=== PATIENT | female | born 1940 | race Caucasian/White ===

== ENCOUNTER 2020-09-14 13:18 | Outpatient (REF) | payer MEDICARE, SELFPAY ==
--- NOTE | 2020-09-14 13:21 | MR_ITS ---
EXAMINATION: MRI THORACIC SPINE WITHOUT AND WITH CONTRAST MRI LUMBAR SPINE WITHOUT AND WITH CONTRAST CLINICAL INFORMATION: Known spinal metastatic disease. Evaluate for cord compression. COMPARISON: CT scan of the chest 05/19/2020. TECHNIQUE: Multiplanar MR imaging of the thoracic and lumbar spine was performed without and with contrast. A total of 4.5 mL Gadavist was utilized for this examination. FINDINGS: Thoracic spine: There are a few heterogeneously enhancing masses visualized within the thoracic spine consistent with the patient's clinical history of spinal metastatic disease. There is a pathological compression fracture of the T5 vertebral body with impaction of the upper and lower endplates resulting in 60% vertebral height loss centrally and slight anterior wedging. Height loss appears appears overall unchanged when compared to recent prior CT imaging from 05/19/2020. Retropulsion of the posterior cortex of T5 is stable causing indentation of the thecal sac and subtle abutment on the ventral surface of the upper thoracic cord. No overt cord compression at this level. In addition to these findings there is multilevel degenerative spondylosis of the thoracic spine with shallow protrusions and/or bulging discs at multiple levels causing minimal indentation of the thecal sac. No canal or neuroforaminal compromise within the thoracic spine. No cord compression or abnormal intramedullary signal changes. Limited visualization of the intrathoracic anatomy reveals a few spiculated pulmonary masses within the left upper lobe. Lumbar spine: There are multiple heterogeneous enhancing masses involving the lumbar spine and sacrum consistent with spinal metastatic disease. The dominant lesion involves the majority of the L2 vertebral body and there is a pathological compression fracture of L2 with impaction of the lower endplate resulting in 80% vertebral height loss anteriorly. Subtle buckling of the posterior cortex without overt retropulsion. Vertebral heights are otherwise maintained within the lumbar spine. In addition to the spinal metastatic disease there is multilevel degenerative spondylosis of the lumbar spine with shallow protrusions and/or bulging discs causing indentation the ventral thecal sac at multiple levels. No canal compromise. The tip of the conus medullaris is located at the level of L1-L2. No mass effect on the conus. Bulging disc in conjunction with facet degenerative change causes varying degrees of mass effect on the traversing and foraminal segments of the nerve roots. For instance at L4-L5 there is moderate to severe compression of the right L4 foraminal nerve root. A bulging disc in conjunction with facet degenerative change at L2-L3 causes moderate compression of the left L2 foraminal nerve root. Limited visualization of the retroperitoneal anatomy reveals no additional worrisome finding. There are multiple well marginated benign-appearing cystic lesions within bilateral atrophic kidneys. Psoas and paraspinal muscle groups are symmetric. MR/MR thoracic spine wo/w con IMPRESSION: There is widespread osseous metastatic disease involving the thoracic and lumbar spine. There are pathological compression fractures at T5 and L2. No canal compromise within the thoracic or lumbar spine. No cord compression or abnormal intramedullary signal changes.
== END 2020-09-14 13:19 | disposition home or self-care (01) ==
LOC: HO.MRI 13:18
PROVIDERS: Visit Provider Internal Medicine Medical Oncology
DX: C34.91 Malignant neoplasm of unspecified part of right bronchus or lung (principal)
CPT/HCPCS: 72157; 72158; A9585

== ENCOUNTER 2020-09-18 13:50 | Outpatient (REF) | payer MEDICARE, SELFPAY ==
--- NOTE | 2020-09-18 13:55 | CT_ITS ---
EXAMINATION: CT CHEST WITH CONTRAST CLINICAL INFORMATION: Follow-up lung cancer COMPARISON: Previous chest CT scans most recent May 2020 TECHNIQUE: Multidetector volumetric CT imaging of the chest was obtained after the administration of 65 mL of Omnipaque 350 intravenous contrast without immediate adverse reactions. Axial MIP volume rendering provided. Sagittal and coronal reformatted images were obtained. This CT examination was performed using dose optimization techniques as appropriate, variously including the following: *Automated exposure control *Adjustment of mA and/or kV according to patient size (this includes techniques or standardized protocols for targeted exams where dose is matched to indication/reason for exam; i.e. extremities or head) *Use of iterative reconstruction technique DLP: 72 mGy-cm FINDINGS: LUNGS: There is evidence of emphysema. There is left apical pleural parenchymal scarring. The left apical peripheral or subpleural nodule associated pleural thickening measuring 1.5 cm axial image 39 series 4 does not appear appreciably changed. There is a peripheral or subpleural abnormal parenchymal density in the more lateral left lung apex and adjacent pleural thickening. This measures 1.4 cm axial image 32 series 4 and appears unchanged. There is a peripheral or subpleural abnormal parenchymal density in the anterior segment of the right upper lobe. This is partially calcified and measures 1 x 1.3 cm axial image 54 series 4. This appears unchanged. There is a 5 mm peripheral or subpleural right lower lobe nodule axial image 125 series 4 that is unchanged. There is a 5 mm peripheral or subpleural right lower lobe nodule axial image 124 series 4 that is stable. There is a new 4 mm peripheral or subpleural anterior segment left upper lobe nodule near the interhemispheric fissure axial image 126 series 4 that is new. There is a new abnormal parenchymal density seen in the lingula and clustered adjacent branching nodules. This probably represents bronchial wall soft tissue opacification/mucoid impaction and small infiltrate for example axial image 124 series 4. There are additional smaller bilateral 2 to 3 mm micronodules that appear unchanged. MEDIASTINUM: The visualized thyroid gland is normal. There are no enlarged hilar or mediastinal lymph nodes. The heart does not appear enlarged. There is coronary artery calcification. There is no pericardial effusion. The thoracic aorta is normal in caliber. PLEURA: There is a small right pleural effusion or pleural thickening axial image 47 series 3 that is new or increased. There is no left pleural effusion or pleural thickening. AXILLA: No lymphadenopathy. UPPER ABDOMEN: There are small bilateral renal cysts. OSSEOUS STRUCTURES: There are multiple sclerotic bone lesions. There is a large sclerotic lesion seen in the T5 vertebral body with mild to moderate compression fracture and some retropulsion of bone into the spinal canal. This does not appear appreciably changed. There is a sclerotic lesion in the T6 vertebral body that is unchanged. There is a smaller sclerotic lesion in the posterior T4 vertebral body that is unchanged. There are sclerotic lesions in the L1 and L2 vertebral bodies. There is degenerative disc disease at this level. How much of this represents sclerotic metastatic disease versus discogenic sclerosis is uncertain. There is a sclerotic lesion in the right anterior fourth rib. This does not appear appreciably changed. There are small lytic lesions in both humeral heads. This may represent subchondral cystic change related to arthritis. CT/CT chest w con IMPRESSION: Emphysema. New 4 mm anterior left upper lobe nodule in the interhemispheric fissure. New probable bronchial soft tissue opacification or mucoid impaction/airways disease and small infiltrate in the inferior segment of the lingula. Otherwise pulmonary nodules and parenchymal densities are not appreciably changed. New small right pleural effusion or pleural thickening. Stable sclerotic bone lesions and pathologic T5 vertebral body compression fracture. Coronary artery calcification.
[2020-09-18] MEDS: iohexoL 350 MG/ML 100 ML INFUS..BTL 65 ML IV (15:31)
== END 2020-09-18 13:51 | disposition home or self-care (01) ==
LOC: HO.CT 13:50
PROVIDERS: Visit Provider Internal Medicine Medical Oncology
DX: C34.91 Malignant neoplasm of unspecified part of right bronchus or lung (principal)
CPT/HCPCS: 71260; Q9967

== ENCOUNTER 2021-04-08 15:33 | Outpatient (REF) | payer MEDICARE, SELFPAY ==
--- NOTE | ~2021-04-08 | CT_ITS ---
EXAMINATION: CT CHEST WITH CONTRAST CLINICAL INFORMATION: Adenocarcinoma of the lung COMPARISON: Previous chest CT September 2020 TECHNIQUE: Multidetector volumetric CT imaging of the chest was obtained after the administration of 65 mL of Omnipaque 350 intravenous contrast without immediate adverse reactions. Axial MIP volume rendering provided. Sagittal and coronal reformatted images were obtained. This CT examination was performed using dose optimization techniques as appropriate, variously including the following: *Automated exposure control *Adjustment of mA and/or kV according to patient size (this includes techniques or standardized protocols for targeted exams where dose is matched to indication/reason for exam; i.e. extremities or head) *Use of iterative reconstruction technique DLP: 72 mGy-cm FINDINGS: PROPAGATION MANAGER: LUNGS: There is evidence of emphysema. The peripheral or subpleural left upper lobe nodule measuring 1.3 cm axial image 28 series 7 that does not appear appreciably changed. The spiculated 1.4 cm left upper lobe nodule axial image 38 series 7 does not appear appreciably changed. There is a 6 mm peripheral or subpleural right lower lobe nodule axial image 84 series 7 that does not appear changed. There is a 6 mm peripheral or subpleural right lower lobe nodule axial image 116 series 7 that does not appear changed. There are clustered peribronchial lingular nodules, largest measuring 1.3 and 1.5 cm axial image 156 series 7. These do not appear appreciably changed. There is volume loss to the left upper lobe. MEDIASTINUM: There is coronary artery calcification. There is a small amount of fluid in the superior pericardial recess. This is stable. The thoracic aorta is upper normal in size and tortuous. There are small mediastinal and hilar lymph nodes that are stable. No enlarged lymph nodes are seen. PLEURA: There is a trace right pleural effusion or pleural thickening. AXILLA: No lymphadenopathy. UPPER ABDOMEN: There are small bilateral renal cysts. OSSEOUS STRUCTURES: There multiple sclerotic bone lesions in the thoracic and lumbar spine and right fourth rib. There is a pathologic compression fracture of the T5 vertebral body and retropulsion of bone into the spinal canal that on the right. This does not appear appreciably changed. There is increasing sclerosis of the T6 vertebral body. There are sclerotic lesions in the L1, L2 and L3 vertebral bodies. There is a pathologic compression fracture of the L2 vertebral body. There may be mild retropulsion of bone into the spinal canal on the right. This does not appear appreciably changed. CT/CT chest w con IMPRESSION: Emphysema. Stable left upper and lingular nodules and small right lower lobe nodules. Sclerotic metastatic disease to the bone with pathologic compression fractures of the T5 and L2 vertebral bodies. This does not appear appreciably changed from previous MRIs September 2020. There is interval increase in sclerotic T6 vertebral body lesion.
[2021-04-08] MEDS: iohexoL 350 MG/ML 100 ML INFUS..BTL IV (16:16)
== END 2021-04-08 15:34 | disposition home or self-care (01) ==
LOC: HO.CT 15:33
PROVIDERS: Visit Provider Internal Medicine Medical Oncology
DX: C34.91 Malignant neoplasm of unspecified part of right bronchus or lung (principal)
CPT/HCPCS: 71260; Q9967

== ENCOUNTER 2021-09-20 12:10 | Emergency (ER) | payer MEDICARE, SELFPAY ==
--- NOTE | ~2021-09-20 | MR_ITS ---
EXAMINATION: MR THORACIC SPINE WITHOUT CONTRAST, LIMITED MR LUMBAR SPINE WITHOUT CONTRAST, LIMITED CLINICAL INFORMATION: Known spinal metastatic disease. Pain. Lower extremity weakness and falls. COMPARISON: MRI dated 09/14/2020. TECHNIQUE: Multiplanar, multisequential imaging acquired. Limited study due to patient discomfort and inability to continue the examination for postcontrast imaging. FINDINGS: THORACIC SPINE: Extensive osseous metastatic disease again evident with progression compared to the prior MRI study. Marrow signal replacement now evident at the T4 and more so at the T6 levels compared to the prior examination. A pathologic severe compression fracture deformity at the T5 level has worsened, now resulting in further bony retropulsion and moderate thecal sac distortion with further ventral cord flattening, but no visible intramedullary signal change. Severe right T5-T6 neural foraminal narrowing is worsened as well. On the localizer acquisition, metastatic disease in the C2 vertebra is again visible, though not targeted for evaluation. No cord signal abnormality or syrinx is seen. There is mild epidural soft tissue disease at the T4 through T6 levels contributing to thecal sac distortion. The ventral thecal sac at the T6 level now has a trefoil appearance due to epidural soft tissue disease without cord compression. No additional compression fractures identified. Multilevel spondylosis again evident with facet arthropathy and mild disc bulges. The marrow signal is heterogeneous due to fatty changes. Metastatic disease infiltrates the T12 vertebral body posteriorly, also progressed since the prior examination. There is a leftward curvature of the thoracic spine. Indeterminate nodular soft tissue disease is visible in the left lung apex medially and posteriorly, also visible on prior chest CT imaging. The visualized mediastinum is grossly unremarkable, though not well assessed by MRI. Renal cysts noted. LUMBAR SPINE: There is a rightward curvature of the upper lumbar spine. Diffusely heterogeneous marrow signal again evident. Osseous metastatic disease has progressed in the L1, L2, L3, and L4 vertebrae, most severely affecting the L2 vertebral body, as on the prior study. There is a chronic pathologic fracture of the T2 vertebral body with anterior wedging deformity. Epidural soft tissue disease distorting the ventral thecal sac from the L1 through the L2 levels has worsened superimposed upon spondylosis. No high-grade central canal stenosis evident. Significant foraminal narrowing noted at the L2-L3 level, worse on the left side. Further marrow signal replacement noted at the L3 level without a compression deformity. Exuberant facet arthropathy visible at the L3-L4, L4-L5, and L5-S1 levels with severe left foraminal narrowing at L3-L4 and right foraminal narrowing at the L4-L5 level, as on the prior examination. Osseous disease is again visible within the lower sacrum. The lower cord, conus tip, and cauda equina nerve roots are normal. The paraspinal soft tissues are unremarkable. MR/MR thoracic spine wo con IMPRESSION: 1. Progressed osseous metastatic disease in the thoracolumbar spine. Severe compression fracture deformity again evident at the T5 level, though worsened on the current examination with further bony retropulsion and ventral epidural soft tissue disease resulting in moderate thecal sac distortion and [id number] ventral cord flattening without intramedullary signal change. 2. Increased ventral epidural soft tissue disease from the T4 through the T6 levels with [id number] thecal sac distortion at the upper T6 level. 3. Progressed osseous metastatic disease and epidural soft tissue disease as well in the lumbar spine with disease most significant at the L2 level, as noted on prior imaging. No new compression fractures. Epidural soft tissue disease at the L1 and L2 levels contributing to mild ventral thecal sac distortion superimposed upon moderate spondylosis.
--- NOTE | ~2021-09-20 | MR_ITS ---
EXAMINATION: MR THORACIC SPINE WITHOUT CONTRAST, LIMITED MR LUMBAR SPINE WITHOUT CONTRAST, LIMITED CLINICAL INFORMATION: Known spinal metastatic disease. Pain. Lower extremity weakness and falls. COMPARISON: MRI dated 09/14/2020. TECHNIQUE: Multiplanar, multisequential imaging acquired. Limited study due to patient discomfort and inability to continue the examination for postcontrast imaging. FINDINGS: THORACIC SPINE: Extensive osseous metastatic disease again evident with progression compared to the prior MRI study. Marrow signal replacement now evident at the T4 and more so at the T6 levels compared to the prior examination. A pathologic severe compression fracture deformity at the T5 level has worsened, now resulting in further bony retropulsion and moderate thecal sac distortion with further ventral cord flattening, but no visible intramedullary signal change. Severe right T5-T6 neural foraminal narrowing is worsened as well. On the localizer acquisition, metastatic disease in the C2 vertebra is again visible, though not targeted for evaluation. No cord signal abnormality or syrinx is seen. There is mild epidural soft tissue disease at the T4 through T6 levels contributing to thecal sac distortion. The ventral thecal sac at the T6 level now has a trefoil appearance due to epidural soft tissue disease without cord compression. No additional compression fractures identified. Multilevel spondylosis again evident with facet arthropathy and mild disc bulges. The marrow signal is heterogeneous due to fatty changes. Metastatic disease infiltrates the T12 vertebral body posteriorly, also progressed since the prior examination. There is a leftward curvature of the thoracic spine. Indeterminate nodular soft tissue disease is visible in the left lung apex medially and posteriorly, also visible on prior chest CT imaging. The visualized mediastinum is grossly unremarkable, though not well assessed by MRI. Renal cysts noted. LUMBAR SPINE: There is a rightward curvature of the upper lumbar spine. Diffusely heterogeneous marrow signal again evident. Osseous metastatic disease has progressed in the L1, L2, L3, and L4 vertebrae, most severely affecting the L2 vertebral body, as on the prior study. There is a chronic pathologic fracture of the T2 vertebral body with anterior wedging deformity. Epidural soft tissue disease distorting the ventral thecal sac from the L1 through the L2 levels has worsened superimposed upon spondylosis. No high-grade central canal stenosis evident. Significant foraminal narrowing noted at the L2-L3 level, worse on the left side. Further marrow signal replacement noted at the L3 level without a compression deformity. Exuberant facet arthropathy visible at the L3-L4, L4-L5, and L5-S1 levels with severe left foraminal narrowing at L3-L4 and right foraminal narrowing at the L4-L5 level, as on the prior examination. Osseous disease is again visible within the lower sacrum. The lower cord, conus tip, and cauda equina nerve roots are normal. The paraspinal soft tissues are unremarkable. MR/MR lumbar spine wo con IMPRESSION: 1. Progressed osseous metastatic disease in the thoracolumbar spine. Severe compression fracture deformity again evident at the T5 level, though worsened on the current examination with further bony retropulsion and ventral epidural soft tissue disease resulting in moderate thecal sac distortion and [id number] ventral cord flattening without intramedullary signal change. 2. Increased ventral epidural soft tissue disease from the T4 through the T6 levels with [id number]-[id number] thecal sac distortion at the upper T6 level. 3. Progressed osseous metastatic disease and epidural soft tissue disease as well in the lumbar spine with disease most significant at the L2 level, as noted on prior imaging. No new compression fractures. Epidural soft tissue disease at the L1 and L2 levels contributing to mild ventral thecal sac distortion superimposed upon moderate spondylosis.
[2021-09-20 12:25] VITALS: BP 128/80; BP 138/86; PULSE 79; PULSE 86; RESP 18; TEMP 36.8; O2SAT 94; O2SAT 96; BMI 14.1
--- NOTE | 2021-09-20 15:46 | ED.GENADULT ---
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 Denies head trauma or LOC during any of these falls. Patient was instructed to come to ED from oncologist Dr. Haas. Reports difficulty ambulating secondary to weakness/pain. denies fever, numbness/ tingling, urinary incontinence / retention, head trauma, LOC <BERTRAND Lamb - Last Filed: 09/20/21 17:20> Onset (ago): week(s) <BERTRAND Lamb - Last Filed: 09/20/21 17:20> Related Data Home medications: Home Medications Medication Instructions Recorded Confirmed aspirin 81 mg tablet 81 mg PO DAILY 06/23/20 09/17/21 Previous Rx's Medication Instructions Recorded calcium citrate 315 mg-vitamin D3 1 tab PO TID #90 tab 06/22/21 5 mcg (200 unit) tablet (Calcium Citrate + D) oxycodone 5 mg capsule 5 mg PO Q8H PRN #30 cap 09/17/21 vitamin B12 1,000 mcg-folic acid 1 jake SUBLINGUAL DAILY #90 ea 09/17/21 400 mcg sublingual lozenge dexamethasone 4 mg tablet 10 mg PO DAILY 5 Days #13 tab 09/20/21 (Decadron) oxycodone 5 mg tablet 5 mg PO Q8H PRN #10 tab 09/20/21 <BERTRAND Lamb Last Filed: 09/20/21 17:20> Allergies/adverse reactions: Allergies Allergy/AdvReac Type Severity Reaction Status Date / Time lactose [LACTOSE] AdvReac Mild DIARRHEA,BL Verified 06/23/20 13:31 OATING <BERTRAND Lamb - Last Filed: 09/20/21 17:20> Review of Systems Review of Systems: Constitutional: No Fever, No Chills, No Fatigue, No Malaise ENT/Mouth: No Hearing loss, No Ear Pain, No Nasal Congestion, No sore throat, No Rhinorrhea Eyes: No Eye Pain, No Swelling, No Redness, No Discharge Cardiovascular: No Chest Pain, No SOB, No Edema, No Palpitations Respiratory: No Cough, No Dyspnea Gastrointestinal: No Nausea, No Vomiting, No Diarrhea, No Constipation, No Abdominal pain Genitourinary: No irregular bleeding, No Dysuria, No Hematuria, No Urinary Incontinence/retention, No Urgency, No Flank Pain Musculoskeletal: + back pain, No Myalgias, No Joint Swelling Skin: No Skin Lesions, No rash Neuro: No Weakness, No Numbness, No Paresthesias, No Dizziness, No Headache <BERTRAND Lamb Last Filed: 09/20/21 17:20> Yes all other systems are reviewed and are negative <BERTRAND Lamb - Last Filed: 09/20/21 17:20> Neurologic: Denies Sensory deficit (Neuro) <BERTRAND Lamb Last Filed: 09/20/21 17:20> [facility] Past Medical History Attestation statement: The following information was validated with the patient. <BERTRAND Lamb - Last Filed: 09/20/21 17:20> Medical History: Medical History Cataract HTN (hypertension) <BERTRAND Lamb Last Filed: 09/20/21 17:20> Social History Social History: Social History Alcohol intake: current Alcohol intake frequency: holidays/special occasions only Cigarette Packs Per Day: 1 Advance Directives: No Advance Directives Information Provided: Yes <BERTRAND Lamb Last Filed: 09/20/21 17:20> Physical Exam Vital Signs: Vital Signs: Last Vital Signs Temp 98.2 F 01/17/22 12:25 Pulse 80 09/20/21 20:35 Resp 16 09/20/21 20:35 BP 141/74 H 09/20/21 20:35 Pulse Ox 98 09/20/21 20:35 BMI result Body Mass Index 14.1 <BERTRAND Lamb - Last Filed: 09/20/21 17:20> Vital Signs: Last Vital Signs Temp 98.2 F 09/20/21 12:25 Pulse 80 09/20/21 20:35 Resp 16 09/20/21 20:35 BP 141/74 H 09/20/21 20:35 Pulse Ox 98 09/20/21 20:35 BMI result Body Mass Index 14.1 <Mehnaz Farnsworth NP - Last Filed: 09/20/21 22:04> Const: General: cooperative, healthy appearing and no acute distress <BERTRAND Lamb - Last Filed: 09/20/21 17:20> Orientation/consciousness: patient oriented x3 <BERTRAND Lamb - Last Filed: 09/20/21 17:20> Limitations: no limitations <BERTRAND Lamb - Last Filed: 09/20/21 17:20> HENMT: Head: Yes normal to inspection <BERTRAND Lamb - Last Filed: 09/20/21 17:20> Ears: hearing grossly normal bilaterally <BERTRAND Lamb - Last Filed: 09/20/21 17:20> General nose exam: Normal external nose present <BERTRAND Lamb - Last Filed: 09/20/21 17:20> Face and sinus: Yes normal facial exam <BERTRAND Lamb - Last Filed: 09/20/21 17:20> Eyes: General: appearance normal, both eyes and all related structures <BERTRAND Lamb - Last Filed: 09/20/21 17:20> EOM: EOMs intact bilaterally <BERTRAND Lamb - Last Filed: 09/20/21 17:20> Neck: Other: no midline cervical spinous tenderness <BERTRAND Lamb - Last Filed: 09/20/21 17:20> Neck: Yes normal visual inspection and Yes no meningeal signs <Melissa Sauceda PA - Last Filed: 09/20/21 17:20> Resp: Effort & Inspection: normal respiratory effort and no respiratory distress <Melissa Sauceda PA - Last Filed: 09/20/21 17:20> Auscultation: clear to auscultation bilaterally <Melissa Sauceda PA - Last Filed: 09/20/21 17:20> Cardio: Rate: regular rate <Melissa Poulsvetlana PA - Last Filed: 09/20/21 17:20> Heart sounds: S1 normal heart sound present and S2 normal heart sound present <Melissa Poullebront PA - Last Filed: 09/20/21 17:20> Peripheral pulses: dorsalis pedis present <Melissa Poulsvetlana PA - Last Filed: 09/20/21 17:20> GI: Inspection: Yes normal to inspection <Melissa Sauceda PA - Last Filed: 09/20/21 17:20> Palpation (GI): Soft to palpation, nontender, no guarding and not rigid <Melissa Sauceda PA - Last Filed: 09/20/21 17:20> : General: Yes no CVA tenderness <Melissa Sauceda, PA - Last Filed: 09/20/21 17:20> Back/Spine/Pelvis: Other: no midline thoracic/ lumbar spinous tenderness/step-off or deformity <Melissa Sauceda, PA - Last Filed: 09/20/21 17:20> Back: no CVA tenderness <Melissa Sauceda PA - Last Filed: 09/20/21 17:20> Skin: Rashes: no rashes <Melissa Poullebront PA - Last Filed: 09/20/21 17:20> Wounds: no wounds <Melissa Sauceda PA - Last Filed: 09/20/21 17:20> Neuro: Other: no saddle anesthesia <Melissa Poullebront, PA - Last Filed: 09/20/21 17:20> General: patient oriented x3, gait normal, tone normal, moves all extremities and no meningeal signs <Melissa Sauceda PA - Last Filed: 09/20/21 17:20> Gait exam (Neuro): Normal gait present <BERTRAND Lamb - Last Filed: 09/20/21 17:20> Motor exam (neuro): 5/5 motor strength present throughout <BERTRAND Lamb - Last Filed: 09/20/21 17:20> Sensory Exam: No Sensory deficit (Neuro) <BERTRAND Lamb - Last Filed: 09/20/21 17:20> Extrem: General: Yes normal to inspection <BERTRAND Lamb - Last Filed: 09/20/21 17:20> Course Course Course Narrative: -1700--no leukocytosis, H/H low at baseline, chronic CKD, labs otherwise unremarkable -1713--patient transported to MRI > unable to stay still, PO Ativan and IV Morphne ordered and brought to MRI -1900-- ED care transferred to UNLOADER OPERATOR Mehnaz pending MRI results and dispo <BERTRAND Lamb - Last Filed: 09/20/21 17:20> -1700--no leukocytosis, H/H low at baseline, chronic CKD, labs otherwise unremarkable -1712--patient transported to MRI > unable to stay still, PO Ativan and IV Morphne ordered and brought to MRI -1900-- ED care transferred to UNLOADER OPERATOR Mehnaz pending MRI results and dispo 2029-This is a 80 yo female with a history of adenocarcinoma with bony mets s/p radiation (completed 10/16/20) s/p chemotherapy stopped 04/16/2020 seen at oncology 09/17 for follow-up. C/o lower leg weakness, multiple falls at home. Referred to ED for MRI spine d/t concern for cord compression with known history of metastatic disease to spine. Patient was seen by my colleague Melissa THURSTON and was noted to have a normal neurological exam with intact reflexes and no reports of saddle anesthesia or incontinence. MRI was ordered and patient was signed out to me pending the MRI. MRI spine shows extensive metastatic disease with progression compared to previous MRI study. A pathological severe compression fracture seen at T5 is worsened now resulting in bony retropulsion and moderate thecal sac distortion with further ventral cord flattening. No visible intramedullary signal change. Additional metastatic disease seen at T4, T6, C2, multiple lumbar. I discussed the case with Dr. Haas who with the patient's oncologist. If patient is willing she recommended treatment with radiation of the spine and 4 mg of Decadron every 6 hours IV. I spoke to both the patient and the . Initially the patient wanted to go home and follow-up with Oncology but after further discussion there was concern from family that she may be unsafe to go home due to her weakness and falls. She did not want placement in a short-term rehab. Unfortunately we do not offer radiation treatment here at [facility] and I will attempt to call local hospitals to see if they can offer this service for the patient. 2099-spoke to [facility] but they are closed to transfers 2109-spoke to [facility] but they are closed to transfers 2114-spoke to [facility]. Tonight they are closed to transfers but they may have a bed in the morning for the patient. They recommended calling back in the morning. Patient is not willing to go elsewhere and I did offer to call [facility], hospitals in [place] and [facility] but both the patient and her Chaim declined this. 2129-I spoke to our medicine team here at [facility] to see if they would be willing to admit the patient overnight, continue IV steroids and attempt transfer in the morning but they declined this. Therefore after further discussion with both family and patient we will hold patient in the ER overnight and attempt transfer in the morning. 2199- I received a phone call from the Chaim who tells me he will come pick the patient up from the ER tonight. He was able to get a hold of his son who will help him merchandise pickup/receiving associate the [facility] I explained they need to call Dr Haas's office in the morning to discuss next steps. I explained to the patient who is alert and oriented x3 side effects of high dose steroids at home as well as risks of delaying care which include progression of disease and/or paralysis. 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 On exam vital signs stable, NAD, nontoxic no midline spinous tenderness throughout, no red flag symptoms, no saddle anesthesia. Strength intact. Concern for bone Mets vs MSK pain/strain. Lower concern or cauda equina, epidural abscess, or demyelinating process Plan: Case discussed with Dr. Haas recommended MR thoracic and lumbar spine, Labs, UA <BERTRAND Lamb - Last Filed: 09/20/21 17:20> Medical Records Medical records reviewed: Yes I reviewed the patient's medical records. <BERTRAND Lamb - Last Filed: 09/20/21 17:20> Lab Data Lab results reviewed: Yes I reviewed the patient's lab results. <BERTRAND Lamb - Last Filed: 09/20/21 17:20> Result diagrams: : 09/20/21 16:27 09/20/21 16:27 <BERTRAND Lamb - Last Filed: 09/20/21 17:20> Labs: Lab Results 09/20/21 09/20/21 Range/Units 16:27 16:27 WBC 6.5 (4.8-10.8) X10*3/uL RBC 2.34 L (4.20-5.50) X10*6/uL Hgb 8.0 L (12.0-16.0) g/dl Hct 24.6 L (37.0-47.0) % MCV 105.1 H (80.0-98.0) fL MCH 34.2 H (27.0-33.0) pg MCHC 32.5 (31.0-35.0) g/dl RDW 14.8 (11.0-16.0) % Plt Count 116 L (160-400) X10*3/uL MPV 9.0 L (9.4-12.3) fL Immature Gran % (Auto) 0.8 H (0.0-0.4) % Neut % (Auto) 84.0 H (45-73) % Lymph % (Auto) 7.3 L (20-40) % Nicholas % (Auto) 7.1 (2-11) % Eos % (Auto) 0.6 (0-4) % Baso % (Auto) 0.2 (0-2) % Lymph # (Auto) 0.5 L (1.2-4.9) X10*3/uL Nicholas # (Auto) 0.5 (0.1-1.2) X10*3/uL Eos # (Auto) 0.0 (0.0-0.4) X10*3/uL Baso # (Auto) 0.0 (0.0-0.2) X10*3/uL Abs Immat Gran (auto) 0.05 H (0.00-0.03) X10*3/uL Absolute Neuts (auto) 5.5 (2.0-8.3) x10*3/uL Absolute Nucleated RBC 0.000 (0.0-0.012) X10*3/uL Nucleated RBC % (auto) 0.0 (0.0-0.2) /100WBC Sodium 140 (135-145) mmol/L Potassium 4.3 (3.3-5.1) mmol/L Chloride 109 H (96-108) mmol/L Carbon Dioxide 23 (22-29) mmol/L Anion Gap 12 (12-20) BUN 41 H (9-16) mg/dL Creatinine 1.80 H (0.5-1.4) mg/dL Estim Creat Clear Calc 16.6 Estimated GFR 27 Random Glucose 93 (60-115) mg/dL Calcium 8.5 D (8.4-10.2) mg/dL Magnesium 2.3 (1.6-2.6) mg/dL Total Bilirubin 0.4 (0.0-1.0) mg/dL Direct Bilirubin 0.2 (0.0-0.5) mg/dL AST 14 (5-31) U/L ALT 11 (0-31) U/L Alkaline Phosphatase 148 H D (39-117) U/L Total Protein 5.9 L (6.5-8.0) g/dL Albumin 3.3 L (3.5-5.0) g/dL <BERTRAND Lamb - Last Filed: 09/20/21 17:20> Lab Results 09/20/21 09/20/21 Range/Units 16:27 16:27 WBC 6.5 (4.8-10.8) X10*3/uL RBC 2.34 L (4.20-5.50) X10*6/uL Hgb 8.0 L (12.0-16.0) g/dl Hct 24.6 L (37.0-47.0) % MCV 105.1 H (80.0-98.0) fL MCH 34.2 H (27.0-33.0) pg MCHC 32.5 (31.0-35.0) g/dl RDW 14.8 (11.0-16.0) % Plt Count 116 L (160-400) X10*3/uL MPV 9.0 L (9.4-12.3) fL Immature Gran % (Auto) 0.8 H (0.0-0.4) % Neut % (Auto) 84.0 H (45-73) % Lymph % (Auto) 7.3 L (20-40) % Nicholas % (Auto) 7.1 (2-11) % Eos % (Auto) 0.6 (0-4) % Baso % (Auto) 0.2 (0-2) % Lymph # (Auto) 0.5 L (1.2-4.9) X10*3/uL Nicholas # (Auto) 0.5 (0.1-1.2) X10*3/uL Eos # (Auto) 0.0 (0.0-0.4) X10*3/uL Baso # (Auto) 0.0 (0.0-0.2) X10*3/uL Abs Immat Gran (auto) 0.05 H (0.00-0.03) X10*3/uL Absolute Neuts (auto) 5.5 (2.0-8.3) x10*3/uL Absolute Nucleated RBC 0.000 (0.0-0.012) X10*3/uL Nucleated RBC % (auto) 0.0 (0.0-0.2) /100WBC Sodium 140 (135-145) mmol/L Potassium 4.3 (3.3-5.1) mmol/L Chloride 109 H (96-108) mmol/L Carbon Dioxide 23 (22-29) mmol/L Anion Gap 12 (12-20) BUN 41 H (9-16) mg/dL Creatinine 1.80 H (0.5-1.4) mg/dL Estim Creat Clear Calc 16.6 Estimated GFR 27 Random Glucose 93 (60-115) mg/dL Calcium 8.5 D (8.4-10.2) mg/dL Magnesium 2.3 (1.6-2.6) mg/dL Total Bilirubin 0.4 (0.0-1.0) mg/dL Direct Bilirubin 0.2 (0.0-0.5) mg/dL AST 14 (5-31) U/L ALT 11 (0-31) U/L Alkaline Phosphatase 148 H D (39-117) U/L Total Protein 5.9 L (6.5-8.0) g/dL Albumin 3.3 L (3.5-5.0) g/dL <Mehnaz Farnsworth NP - Last Filed: 09/20/21 22:04> Imaging Data mri lumbar/thoracic: Attestation: I personally reviewed and interpreted this imaging study as follows: <Mehnaz Farnsworth NP - Last Filed: 09/20/21 22:04> Radiologist's impression: IMPRESSION: 1. Progressed osseous metastatic disease in the thoracolumbar spine. Severe compression fracture deformity again evident at the T5 level, though worsened on the current examination with further bony retropulsion and ventral epidural soft tissue disease resulting in moderate thecal sac distortion and [id number] ventral cord flattening without intramedullary signal change. ? 2. Increased ventral epidural soft tissue disease from the T4 through the T6 levels with [id number] thecal sac distortion at the upper T6 level. ? 3. Progressed osseous metastatic disease and epidural soft tissue disease as well in the lumbar spine with disease most significant at the L2 level, as noted on prior imaging. No new compression fractures. Epidural soft tissue disease at the L1 and L2 levels contributing to mild ventral thecal sac distortion superimposed upon moderate spondylosis. <Mehnaz Farnsworth NP - Last Filed: 09/20/21 22:04> Discharge Plan Discharge Clinical Impression: Bilateral leg weakness, Metastatic disease, Compression of spinal cord Back pain Qualifiers: Back pain location: low back pain <BERTRAND Lamb - Last Filed: 09/20/21 17:20> Patient Disposition: Home, Self-Care <BERTRAND Lamb - Last Filed: 09/20/21 17:20> Instructions: Back Pain (ED) <BERTRAND Lamb - Last Filed: 09/20/21 17:20> Additional Instructions: Your MRI shows multiple lesions in the spine which is metastatic disease from her cancer. There is also a lesion at the thoracic spine that is compressing on your cord. This is causing weakness and falls at home. It was recommended that you have radiation of the spine and IV steroids but you declined this. We also offerred to hold you in the emergency department and transfer you to a facility that offers this service when bed is available but you declined this. We also offered you placement in short-term rehab but you declined this. The compression of your spine may become worse and cause further weakness and even paralysis of your extremities If your symptoms persist or worsen, he develops concert persisting pain/ weakness, urinary incontinence, retention, or fever please return to the ED. You must call Dr Haas office tomorrow to discuss what steps are next for your care. <BERTRAND Lamb - Last Filed: 09/20/21 17:20> Prescriptions: New oxycodone 5 mg tablet 5 mg PO Q8H PRN (Reason: pain) Qty: 10 RF: 0 dexamethasone [Decadron] 4 mg tablet 10 mg PO DAILY 5 Days Qty: 13 RF: 0 No Action aspirin 81 mg Tablet 81 mg PO DAILY RF: 0 calcium citrate-vitamin D3 [Calcium Citrate + D] 315 mg-5 mcg (200 unit) Tablet 1 tab PO TID Qty: 90 RF: 4 vitamin [id number] acid 1,000-400 mcg Lozenge 1 jake SUBLINGUAL DAILY Qty: 90 RF: 4 oxycodone 5 mg Capsule 5 mg PO Q8H PRN (Reason: Breakthrough Pain, Severe) Qty: 30 RF: 0 <BERTRAND Lamb - Last Filed: 09/20/21 17:20> Referrals: Irma Haas MD [Physician] - 2 days <BERTRAND Lamb - Last Filed: 09/20/21 17:20>
[2021-09-20 16:32] LABS: MANUAL DIFF FLAG NO
[2021-09-20 16:33] LABS: Basophils Percent Auto 0.2 % (0-2); Eosinophils Percent Auto 0.6 % (0-4); Hematocrit 24.6 % (37.0-47.0); Imm Gran Abs Auto 0.05 X10*3/uL (0.00-0.03); Imm Gran Pct Auto 0.8 % (0.0-0.4); Lymphocytes Absolute Auto 0.5 X10*3/uL (1.2-4.9); Lymphocytes Percent Auto 7.3 % (20-40); Mean Corpuscular HGB Conc 32.5 g/dl (31.0-35.0); Mean Corpuscular Hemoglobin 34.2 pg (27.0-33.0); Mean Corpuscular Volume 105.1 fL (80.0-98.0); Monocytes Absolute Auto 0.5 X10*3/uL (0.1-1.2); Monocytes Percent Auto 7.1 % (2-11); Neutrophils Absolute Auto 5.5 x10*3/uL (2.0-8.3); Platelet Count 116 X10*3/uL (160-400); Red Blood Count 2.34 X10*6/uL (4.20-5.50); Red Cell Distribution Width 14.8 % (11.0-16.0); White Blood Count 6.5 X10*3/uL (4.8-10.8)
[2021-09-20 16:51] LABS: Alanine Aminotransferase 11 U/L (0-31); Albumin Level 3.3 g/dL (3.5-5.0); Alkaline Phosphatase 148 U/L (39-117); Anion Gap 12 (12-20); Aspartate Amino Transferase 14 U/L (5-31); Bilirubin Direct 0.2 mg/dL (0.0-0.5); Bilirubin Total 0.4 mg/dL (0.0-1.0); Blood Urea Nitrogen 41 mg/dL (9-16); Calcium 8.5 mg/dL (8.4-10.2); Carbon Dioxide 23 mmol/L (22-29); Chloride 109 mmol/L (96-108); Creatinine Clr Calc Pharmacy 16.6; Estimated Glomerular Filt Rate 27; Glucose Random 93 mg/dL (60-115); Magnesium 2.3 mg/dL (1.6-2.6); Potassium 4.3 mmol/L (3.3-5.1); Sodium 140 mmol/L (135-145); Total Protein 5.9 g/dL (6.5-8.0)
[2021-09-20 16:59] VITALS: BP 124/72; PULSE 68; O2SAT 97
[2021-09-20] MEDS: Morphine Sulfate 2 MG/ML CARTRIDGE IVPUSH (17:21)
[2021-09-20] MEDS: LORazepam 1 MG TABLET PO (17:22)
[2021-09-20 20:35] VITALS: BP 141/74; PULSE 80; RESP 16; O2SAT 98
[2021-09-20] MEDS: oxyCODONE HCl Immed Release 5 MG TABLET PO (22:37)
[2021-09-20] MEDS: dexAMETHasone sod phosphate 4 MG/ML VIAL IVPUSH (22:37)
--- NOTE | 2021-09-20 22:38 | PC.NURSE ---
medicated pt per nov and review discharge instructions. pt verbalized understanding.
--- NOTE | 2021-09-21 08:27 | MHC.CM.ED ---
Received case management consult overnight. Patient was d/c'd home around 10pm last night. Patient found to have Bone mets. Will follow up with Dr Corbett office. No additional services can be offered by CM at this time.
== END 2021-09-20 22:57 | disposition home or self-care (01) ==
PROVIDERS: Physician Assistant; Emergency Provider Emergency Medicine; PCP Internal Medicine
DX: R53.1 Weakness (principal); G95.20 Unspecified cord compression; M54.50 Low back pain, unspecified; C34.91 Malignant neoplasm of unspecified part of right bronchus or lung; C79.51 Secondary malignant neoplasm of bone; Z91.81 History of falling; I10 Essential (primary) hypertension; Z87.891 Personal history of nicotine dependence
CPT/HCPCS: 36415; 72146; 72148; 80048; 80076; 83735; 85025; 96374; 96375; 99283; 99285; J1100; J2270

== ENCOUNTER 2021-12-10 14:20 | Outpatient (RCR) | payer MEDICARE, SELFPAY ==
[2020-06-23 13:07] VITALS: BP 100/69; PULSE 111; RESP 18; TEMP 36.3; O2SAT 100
[2020-06-23 13:10] VITALS: BMI 15.8
[2020-06-23 13:41] LABS: Basophils Percent Auto 0.5 % (0-2); Eosinophils Percent Auto 0.8 % (0-4); Hematocrit 26.8 % (37-47); Hemoglobin 8.5 g/dl (12.0-16.0); Imm Gran Abs Auto 0.02 X10*3/uL (0.00-0.03); Imm Gran Pct Auto 0.5 % (0.0-0.4); Lymphocytes Absolute Auto 0.5 X10*3/uL (1.2-4.9); Lymphocytes Percent Auto 11.5 % (20-40); MANUAL DIFF FLAG SCAN; Mean Corpuscular HGB Conc 31.7 g/dl (31.0-35.0); Mean Corpuscular Hemoglobin 34.1 pg (27.0-33.0); Mean Corpuscular Volume 107.6 fL (80-98); Mean Platelet Volume 9.8 fL (9.4-12.3); Monocytes Absolute Auto 0.3 X10*3/uL (0.1-1.2); Monocytes Percent Auto 8.3 % (2-11); Neutrophils Absolute Auto 3.1 X10*3/uL (2.0-8.3); Neutrophils Percent Auto 78.4 % (45-73); Red Blood Count 2.49 X10*6/uL (4.20-5.50); Red Cell Distribution Width 19.5 % (11.0-16.0); SCAN SMEAR FLAG 1
[2020-06-23 13:50] LABS: Platelet Count 66 X10*3/uL (160-400)
[2020-06-23 14:18] LABS: Alanine Aminotransferase < 6 U/L (0-31); Albumin Level 3.4 g/dL (3.5-5.0); Alkaline Phosphatase 84 U/L (39-117); Anion Gap 14 (12-20); Aspartate Amino Transferase 10 U/L (5-31); Bilirubin Total 0.3 mg/dL (0.0-1.0); Blood Urea Nitrogen 17 mg/dL (9-16); Calcium 8.3 mg/dL (8.4-10.2); Carbon Dioxide 20 mmol/L (22-29); Chloride 107 mmol/L (96-108); Creatinine Clr Calc Pharmacy 25.8; Estimated Glomerular Filt Rate 39; Glucose Random 92 mg/dL (60-115); Potassium 4.8 mmol/l (3.3-5.1); Sodium 136 mmol/L (135-145); Total Protein 5.7 g/dL (6.5-8.0)
[2020-06-23 14:25] LABS: SLIDE REVIEW VERIFIED
--- NOTE | 2020-06-23 14:28 | PM.HEMONCPN ---
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 CURRENT THERAPY: Completed radiation to the neck on October 16. Completed RT to Hip, 3 weeks ago. B12 injection, last week. Received 1st cycle of carboplatin and Alimta based chemotherapy December 26. Was switched to Carbo/Gemzar. Received cycle 4 of chemo, on March 12. Cycle 5 on April 16. Interval History Interval history: This is a pleasant 79-year-old lady, here for a follow-up visit. Overall she is feeling better. Her pain is manageable. She says, she would not call it pain, more of her discomfort. She does not need anything for it. She has not taken the oxy for a while. She just feels weak and tired. overall not that bad. She fell once she actually lost her balance and fell. Appetite is Actually better. She has been surviving on jelly dounnuts. She denies fever nor chills. She denies chest pain or trouble breathing. She denies abdominal pain, just occasional self-limited cramping. No nausea vomiting, heartburn nor indigestion. Bowels are working without any gross blood in it. She denies any gross blood in the stools. Sometimes, she can not eat well because of the dentures being loose. Her weight is actually stable. She did feel better after the blood transfusion. Has had more energy. She is in good spirits. The rest of the review of systems, is unremarkable. Review of Systems - Constitutional Reports no additional constitutional complaints, Reports body aches, Reports fatigue, Reports malaise - Eyes Reports no additional eye complaints - ENT Reports no additional ear, nose, mouth, and throat complaints - Cardiovascular Reports no additional cardiovascular complaints - Respiratory Reports no additional respiratory complaints - Gastrointestinal Reports no additional gastrointestinal complaints - Genitourinary Reports no additional female genitourinary complaints - Musculoskeletal Reports no additional musculoskeletal complaints - Integumentary/Breasts Skin/Breast: Reports no additional skin complaints - Neurologic Reports no additional neurologic complaints - Psychiatric Denies thoughts of hurting/killing yourself - Hematologic/Lymphatic Reports no additional hematologic/lymphatic complaints - Allergic/Immunologic Reports no additional allergic/immunologic complaints [facility] Medical History: Medical History (Last Updated 10/20/20 @ 13:47 by Donna Bonilla HTN (hypertension) Smoking status: Former smoker Home Medications and Allergies Current Medications: Current Medications Generic Name Dose Route Start Last Admin Trade Name Yenny PRN Reason Stop Dose Admin Denosumab 120 mg 06/23/20 00:00 06/23/20 14:27 Denosumab 120 Mg/1.7 Ml Vial SUBCUT 06/23/20 23:59 120 mg ONCE STACY Administration Home Medications Medication Instructions Recorded Confirmed Type aspirin 81 mg PO DAILY 06/23/20 06/23/20 History calcium citrate-vitamin D3 1 tab PO TID 06/23/20 06/23/20 History [Calcium Citrate + D] dronabinol 1 cap PO BID 06/23/20 06/23/20 History ondansetron HCl 1 tab PO Q8H PRN 06/23/20 06/23/20 History oxycodone 5 mg PO PRN 06/23/20 History potassium chloride 1 tab PO DAILY 06/23/20 06/23/20 History Allergies Allergy/AdvReac Type Severity Reaction Status Date / Time lactose [LACTOSE] AdvReac Mild DIARRHEA,BL Verified 06/23/20 13:31 OATING Exam Vital signs: Vital Signs Temp 97.3 F 06/23/20 13:07 Pulse 111 H 06/23/20 13:07 Resp 18 06/23/20 13:07 BP 100/69 06/23/20 13:07 Pulse Ox 100 06/23/20 13:07 Intake & Output 06/22/20 06/23/20 06/23/20 18:59 06:59 18:59 Other: Weight 45.9 kg Weight 45.9 kg Body Mass Index 15.8 - Constitutional Present: mild distress - Routine HEENT Exam Head: Present: normal inspection Eye: Present: normal appearance ENT: Present: mucous membranes moist - Routine Neck Exam Present: full ROM - Routine Respiratory Exam Present: decreased breath sounds - Routine Cardiovascular Exam Cardiovascular: Present: RRR, S1, S2 - Routine Abdominal Exam Present: soft, nontender - Routine Exam Perineum Description: Normal - Routine Extremities Exam Present: nontender - Routine Back/Spine/Pelvis Exam Back/Spine: Present: full ROM - Routine Skin Exam Present: intact - Routine Neurological Exam Present: alert, oriented X3 - Detailed Neurological Exam: Coma Scale Eye Opening: Spontaneous (4) - Routine Psychiatric Exam Present: normal affect Data - Labs CBC & Chem 7: 06/23/20 13:18 06/23/20 13:18 Labs: Laboratory Results - last 24 hr 06/23/20 06/23/20 13:18 13:18 WBC 4.0 L RBC 2.49 L Hgb 8.5 L Hct 26.8 L MCV 107.6 H MCH 34.1 H MCHC 31.7 RDW 19.5 H Plt Count 66 L MPV 9.8 Immature Gran % (Auto) 0.5 H Neut % (Auto) 78.4 H Lymph % (Auto) 11.5 L Yell % (Auto) 8.3 Eos % (Auto) 0.8 Baso % (Auto) 0.5 Lymph # (Auto) 0.5 L Yell # (Auto) 0.3 Eos # (Auto) 0.0 Baso # (Auto) 0.0 Abs Immat Gran (auto) 0.02 Absolute Neuts (auto) 3.1 Absolute Nucleated RBC 0.000 Nucleated RBC % (auto) 0.0 Smear Tech's Comments VERIFIED Sodium 136 Potassium 4.8 Chloride 107 Carbon Dioxide 20 L Anion Gap 14 BUN 17 H Creatinine 1.32 Estim Creat Clear Calc 25.8 Estimated GFR 39 Random Glucose 92 Calcium 8.3 L Total Bilirubin 0.3 AST 10 ALT < 6 Alkaline Phosphatase 84 Total Protein 5.7 L Albumin 3.4 L Progress Note: A/P (1) Non-small cell carcinoma of lung Status: Acute Assessment and plan: This is an unfortunate 79 year-old lady with on set of symptoms of right cervical pain, that started about a year ago. She does have a previous history of smoking. MRI of the C-spine from July 20 revealed: There is an expansile lesion involving the right-sided body of C2 extending to the right lamina and right transverse process. This is most consistent with a neoplastic process, likely an osseous metastasis. A bone scan could be obtained to evaluate for other osseous lesions. There is narrowing of the right neural foramen. There is mild mass effect on the thecal sac, but there is no spinal cord compression or central stenosis. CT scan of the chest from July 25 revealed: Moderate-sized left upper lobe spiculated lesion measuring 2.1 cm. There are multiple additional lung nodules, likely metastatic. Recommend CT/PET exam and if clinically indicated, biopsy. There are no abnormal mediastinal lymph nodes seen yet. Normal adrenal glands. Bone scan from July 25 revealed: Metastatic tumor involvement of bone with prominent abnormalities in the spine, right frontoparietal skull, right fourth rib, and left sacral ala. An additional abnormality in the supra-acetabular left iliac bone may also be metastatic in etiology, but this alternatively may represent an arthritic or degenerative lesion. The tumor markers are as follows: LDH: 272. CEA: 1963.30. CA 125: 294. CA 19-9: 696. PET scan from August 29 revealed: There is extensive metastatic bone disease most prominent in the cervical, thoracic lumbar and the sacral spine. Also visualized is solitary nodule left upper lobe, metabolically active and likely source of primary lesion. Other pulmonary nodules seen on the previous CT chest exam 07/25/2019 are not metabolically active. The correct metastatic spine levels are as S3, L2 and T5 vertebra. Biopsy of L1 vertebrae from September 12 revealed: Bone, L1, biopsy: Metastatic moderately differentiated adenocarcinoma consistent with lung primary. Molecular/ancillary testing (EGFR, ALK, ROS, BRAF and PD-L1) testing is underway. Results will be addended. She was referred her for radiation therapy to the neck for pain control. She completed the radiation on MondayOctober 16. It does appear to have helped. Repeat CT scan October 18 revealed: No significant change in multiple bilateral pulmonary nodules. The dominant left upper lobe nodule paramediastinal is stable. The semisolid nodule in the left upper lobe posteriorly is also stable. No abnormal mediastinal adenopathy seen. Lytic lesions involving T5, L1 vertebra and right anterior 4th rib are stable. Repeat biopsy of the L1 vertebra: L2, fine needle aspiration:Positive for malignancy, consistent with metastatic lung carcinoma. Molecular testing for: EGFR, ALK, ROS1 and BRAF came back negative. PD-L1 results: Negative. Back in October, Patient completed radiation therapy to the neck and left hip. She has had some improvement in the pain. December 26, she was started on Carboplatin and Alimta based regimen Q 21 days x 6 cycles. Unfortunately she did not tolerate it too well. She developed significant thrombocytopenia. l decided to switch to Carboplatin and Gemcitabine based chemotherapy. l started out with Gemzar 800 milligram/meter squared. She received cycle 3, on March 12. I elected to omit day 8 Gemzar on account of significant pancytopenia. However Her platelets still did plummet. CT scan of the chest from 05/19: 1. Several small pulmonary nodules have improved. 2. The larger nodules are stable in the left upper lobe. 3. No abnormal mediastinal or axillary adenopathy. The sclerotic T5, T6 and L1 lesions are stable. There is mild pathological compression fracture T5 vertebra with posterior sclerotic bony component, stable. The T6 and L1 sclerotic lesions are new. There was a lytic area seen within the L1 vertebra on the previous study. CT scan does show improvement. She has had such a hard time tolerating the treatment. With low energy level failure to thrive. She had significant bone marrow suppression, requiring transfusion of blood and platelets. At that point she elected to take a break. It is important to focus on her quality of life as well. That is important to her. She is actually feeling better. her platelets have improved however white count and hemoglobin are still low. PLAN: She will recieve her Denosumab today. It appears that the break is helping her with her energy level. In the meantime she was advised to hold antihypertensive on account of the low blood pressure and dizziness. She will try to be more active, take the Marinol and eat better. She will return in a couple of months for a follow-up visit. Thank you CC: Melchor Winslow. Giana RT. - Time Spent With Patient Total time spent is greater than 50% in coordination of care (as documented) at patient's floor/unit and/or counseling patient: 25 - 35 minutes
--- NOTE | 2020-06-23 15:00 | MHC.HEMONC ---
pt seen by Dr Haas and labs reviewed. Pt calcium low normal. She will increase to three times per day per Dr Haas and OK to give Denosumab today. Pt has f/u in 2 mos. Will call with any problems before that.
[2020-09-08 11:09] VITALS: BP 140/73; PULSE 86; RESP 18; TEMP 36.7; O2SAT 100; BMI 16.9
[2020-09-08 11:12] LABS: Eosinophils Absolute Auto 0.1 X10*3/uL (0.0-0.4); Eosinophils Percent Auto 2.5 % (0-4); Hematocrit 30.2 % (37-47); Hemoglobin 9.6 g/dl (12.0-16.0); Imm Gran Abs Auto 0.01 X10*3/uL (0.00-0.03); Imm Gran Pct Auto 0.4 % (0.0-0.4); Lymphocytes Absolute Auto 0.3 X10*3/uL (1.2-4.9); Lymphocytes Percent Auto 14.2 % (20-40); MANUAL DIFF FLAG SCAN; Mean Corpuscular HGB Conc 31.8 g/dl (31.0-35.0); Mean Corpuscular Hemoglobin 33.4 pg (27.0-33.0); Mean Corpuscular Volume 105.2 fL (80-98); Mean Platelet Volume 8.9 fL (9.4-12.3); Monocytes Absolute Auto 0.2 X10*3/uL (0.1-1.2); Monocytes Percent Auto 8.3 % (2-11); Neutrophils Absolute Auto 1.8 X10*3/uL (2.0-8.3); Neutrophils Percent Auto 74.6 % (45-73); Red Blood Count 2.87 X10*6/uL (4.20-5.50); Red Cell Distribution Width 12.5 % (11.0-16.0); SCAN SMEAR FLAG 1
--- NOTE | 2020-09-08 11:17 | P.PNHO_ITS ---
Medical Summary - Medical Summary Date of Service: 09/22/20 Medical Summary: DIAGNOSIS: Metastatic adenocarcinoma, with Mets to bones. CURRENT THERAPY: Completed radiation to the neck on October 16. Completed RT to Hip, 3 weeks ago. B12 injection, last week. Received 1st cycle of carboplatin and Alimta based chemotherapy December 26. Was switched to Carbo/Gemzar. Received cycle 4 of chemo, on March 12. Cycle 5 on April 16. Interval History Interval history: This is a pleasant 79-year-old lady, here for a follow-up visit. Overall she is not feeling too well. Lately she has noticed weakness in her legs. Her balance is off. She has a hard time standing up. There appears to be weakness below her knees. She can not walk by herself. She fell once she actually lost her balance and fell. She does feel numbness in her legs. She denies any bladder problems. She is constipated. Chest pain is more positional. She denies any shortness of breath. No fever nor chills. Sometimes she just feels weak and tired. Appetite is Actually better. She has been surviving on [facility]. She denies chest pain or trouble breathing. She denies abdominal pain, just occasional self-limited cramping. No nausea vomiting, heartburn nor indigestion. Bowels are working without any gross blood in it. She denies any gross blood in the stools. Sometimes, she can not eat well because of the dentures being loose. Her weight is actually stable. She is in good spirits. The rest of the review of systems, is unremarkable. She did feel better after the blood transfusion. Has had more energy. Review of Systems - Constitutional Reports system reviewed and no additional complaints, except as documented - Eyes Reports system reviewed and no additional complaints, except as documented - ENT Reports system reviewed and no additional complaints, except as documented - Cardiovascular Reports system reviewed and no additional complaints, except as documented - Respiratory Reports no additional respiratory complaints - Gastrointestinal Reports system reviewed and no additional complaints, except as documented - Genitourinary Reports no additional female genitourinary complaints - Musculoskeletal Reports system reviewed and no additional complaints, except as documented - Integumentary/Breasts Skin/Breast: Reports no additional skin complaints - Neurologic Reports system reviewed and no additional complaints, except as documented - Psychiatric Reports system reviewed and no additional complaints, except as documented - Endocrine Reports no additional endocrine complaints - Hematologic/Lymphatic Reports system reviewed and no additional complaints, except as documented - Allergic/Immunologic Reports system reviewed and no additional complaints, except as documented [facility] Medical History: Medical History (Last Updated 09/08/20 @ 11:12 by Lillian Bear RN) Cataract HTN (hypertension) Functional capacity: uses cane/walker Patient : No Smoking status: Former smoker Home Medications and Allergies Home Medications Medication Instructions Recorded Confirmed Type aspirin 81 mg PO DAILY 06/23/20 06/23/20 History oxycodone 5 mg PO PRN 06/23/20 History Allergies Allergy/AdvReac Type Severity Reaction Status Date / Time lactose [LACTOSE] AdvReac Mild DIARRHEA,BL Verified 06/23/20 13:31 OATING Exam Vital signs: Vital Signs Temp 98.1 F 09/08/20 11:09 Pulse 86 09/08/20 11:09 Resp 18 09/08/20 11:09 BP 140/73 H 09/08/20 11:09 Pulse Ox 100 09/08/20 11:09 Intake & Output 09/07/20 09/08/20 09/08/20 18:59 06:59 18:59 Other: Weight 49 kg Weight 49 kg Body Mass Index 16.9 - Constitutional Present: mild distress - Routine HEENT Exam Head: Present: normal inspection Eye: Present: normal appearance ENT: Present: mucous membranes moist - Routine Neck Exam Present: full ROM - Routine Respiratory Exam Present: decreased breath sounds - Routine Cardiovascular Exam Cardiovascular: Present: RRR, S1, S2 - Routine Abdominal Exam Present: soft, nontender - Routine Rectal Exam Patient deferred: digital exam - Routine Extremities Exam Present: nontender - Routine Back/Spine/Pelvis Exam Back/Spine: Present: full ROM - Routine Skin Exam Present: intact - Routine Neurological Exam Present: alert, oriented X3 - Detailed Neurological Exam: Coma Scale Eye Opening: Spontaneous (4) - Routine Psychiatric Exam Present: normal affect Data - Labs CBC & Chem 7: 09/15/20 12:56 09/15/20 12:56 Labs: 06/23/20 00:00 Denosumab [Xgeva] 120 mg SUBCUT ONCE 06/23/20 13:18 CMP [Comprehensive Met. Panel] Routine Complete Blood Count Auto Diff Routine SLIDE REVIEW Routine Laboratory Last Values WBC 4.0 X10*3/uL (4.8-10.8) L 06/23/20 13:18 RBC 2.49 X10*6/uL (4.20-5.50) L 06/23/20 13:18 Hgb 8.5 g/dl (12.0-16.0) L 06/23/20 13:18 Hct 26.8 % (37-47) L 06/23/20 13:18 MCV 107.6 fL (80-98) H 06/23/20 13:18 MCH 34.1 pg (27.0-33.0) H 06/23/20 13:18 MCHC 31.7 g/dl (31.0-35.0) 06/23/20 13:18 RDW 19.5 % (11.0-16.0) H 06/23/20 13:18 Plt Count 66 X10*3/uL (160-400) L 06/23/20 13:18 MPV 9.8 fL (9.4-12.3) 06/23/20 13:18 Immature Gran % (Auto) 0.5 % (0.0-0.4) H 06/23/20 13:18 Neut % (Auto) 78.4 % (45-73) H 06/23/20 13:18 Lymph % (Auto) 11.5 % (20-40) L 06/23/20 13:18 [place] % (Auto) 8.3 % (2-11) 06/23/20 13:18 Eos % (Auto) 0.8 % (0-4) 06/23/20 13:18 Baso % (Auto) 0.5 % (0-2) 06/23/20 13:18 Lymph # (Auto) 0.5 X10*3/uL (1.2-4.9) L 06/23/20 13:18 [place] # (Auto) 0.3 X10*3/uL (0.1-1.2) 06/23/20 13:18 Eos # (Auto) 0.0 X10*3/uL (0.0-0.4) 06/23/20 13:18 Baso # (Auto) 0.0 X10*3/uL (0.0-0.2) 06/23/20 13:18 Abs Immat Gran (auto) 0.02 X10*3/uL (0.00-0.03) 06/23/20 13:18 Absolute Neuts (auto) 3.1 X10*3/uL (2.0-8.3) 06/23/20 13:18 Absolute Nucleated RBC 0.000 X10*3/uL (0.0-0.012) 06/23/20 13:18 Nucleated RBC % (auto) 0.0 /100WBC (0.0-0.2) 06/23/20 13:18 Smear Tech's Comments VERIFIED 06/23/20 13:18 Sodium 136 mmol/L (135-145) 06/23/20 13:18 Potassium 4.8 mmol/l (3.3-5.1) 06/23/20 13:18 Chloride 107 mmol/L (96-108) 06/23/20 13:18 Carbon Dioxide 20 mmol/L (22-29) L 06/23/20 13:18 Anion Gap 14 (12-20) 06/23/20 13:18 BUN 17 mg/dL (9-16) H 06/23/20 13:18 Creatinine 1.32 mg/dL (0.5-1.4) 06/23/20 13:18 Estim Creat Clear Calc 25.8 06/23/20 13:18 Estimated GFR 39 06/23/20 13:18 Random Glucose 92 mg/dL (60-115) 06/23/20 13:18 Calcium 8.3 mg/dL (8.4-10.2) L 06/23/20 13:18 Total Bilirubin 0.3 mg/dL (0.0-1.0) 06/23/20 13:18 AST 10 U/L (5-31) 06/23/20 13:18 ALT < 6 U/L (0-31) 06/23/20 13:18 Alkaline Phosphatase 84 U/L (39-117) 06/23/20 13:18 Total Protein 5.7 g/dL (6.5-8.0) L 06/23/20 13:18 Albumin 3.4 g/dL (3.5-5.0) L 06/23/20 13:18 Progress Note: A/P (1) Non-small cell carcinoma of lung Status: Acute Assessment and plan: This is an unfortunate 79 year-old lady with on set of symptoms of right cervical pain, that started about a year ago. She does have a previous history of smoking. MRI of the C-spine from July 20 revealed: There is an expansile lesion involving the right-sided body of C2 extending to the right lamina and right transverse process. This is most consistent with a neoplastic process, likely an osseous metastasis. A bone scan could be obtained to evaluate for other osseous lesions. There is narrowing of the right neural foramen. There is mild mass effect on the thecal sac, but there is no spinal cord compression or central stenosis. CT scan of the chest from July 25 revealed: Moderate-sized left upper lobe spiculated lesion measuring 2.1 cm. There are multiple additional lung nodules, likely metastatic. Recommend CT/PET exam and if clinically indicated, biopsy. There are no abnormal mediastinal lymph nodes seen yet. Normal adrenal glands. Bone scan from July 25 revealed: Metastatic tumor involvement of bone with prominent abnormalities in the spine, right frontoparietal skull, right fourth rib, and left sacral ala. An additional abnormality in the supra-acetabular left iliac bone may also be metastatic in etiology, but this alternatively may represent an arthritic or degenerative lesion. The tumor markers are as follows: LDH: 272. CEA: 1963.30. CA 125: 294. CA 19-9: 696. PET scan from August 29 revealed: There is extensive metastatic bone disease most prominent in the cervical, thoracic lumbar and the sacral spine. Also visualized is solitary nodule left upper lobe, metabolically active and likely source of primary lesion. Other pulmonary nodules seen on the previous CT chest exam 07/25/2019 are not metabolically active. The correct metastatic spine levels are as S3, L2 and T5 vertebra. Biopsy of L1 vertebrae from September 12 revealed: Bone, L1, biopsy: Metastatic moderately differentiated adenocarcinoma consist ent with lung primary. Molecular/ancillary testing (EGFR, ALK, ROS, BRAF and PD-L1) testing is und erway. Results will be addended. She was referred her for radiation therapy to the neck for pain control. She completed the radiation on MondayOctober 16. It does appear to have helped. Repeat CT scan October 18 revealed: No significant change in multiple bilateral pulmonary nodules. The dominant left upper lobe nodule paramediastinal is stable. The semisolid nodule in the left upper lobe posteriorly is also stable. No abnormal mediastinal adenopathy seen. Lytic lesions involving T5, L1 vertebra and right anterior 4th rib are stable. Repeat biopsy of the L1 vertebra: L2, fine needle aspiration:Positive for malignancy, consistent with metastatic lung carcinoma. Molecular testing for: EGFR, ALK, ROS1 and BRAF came back negative. PD-L1 results: Negative. Back in October, Patient completed radiation therapy to the neck and left hip. She has had some improvement in the pain. December 26, she was started on Carboplatin and Alimta based regimen Q 21 days x 6 cycles. Unfortunately she did not tolerate it too well. She developed significant thrombocytopenia. l decided to switch to Carboplatin and Gemcitabine based chemotherapy. l started out with Gemzar 800 milligram/meter squared. She received cycle 3, on March 12. I elected to omit day 8 Gemzar on account of significant pancytopenia. However Her platelets still did plummet. CT scan of the chest from 05/19: 1. Several small pulmonary nodules have improved. 2. The larger nodules are stable in the left upper lobe. 3. No abnormal mediastinal or axillary adenopathy. The sclerotic T5, T6 and L1 lesions are stable. There is mild pathological compression fracture T5 vertebra with posterior sclerotic bony component, stable. The T6 and L1 sclerotic lesions are new. There was a lytic area seen within the L1 vertebra on the previous study. CT scan does show improvement. She has had such a hard time tolerating the treatment. With low energy level failure to thrive. She had significant bone marrow suppression, requiring transfusion of blood and platelets. At that point she elected to take a break. It is important to focus on her quality of life as well. That is important to her. She is having numbness and leg weakness, below the knees. With her history of bone disease I am concerned about cord compression. PLAN: I will proceed with MRI of the lumbar and thoracic spine. This will be scheduled for tomorrow after prior Auth has been obtained. She will recieve her next Denosumab later in the month. In the meantime she was advised to hold antihypertensive on account of the low blood pressure and dizziness. She will try to be more active, take the Marinol and eat better. She will return in a month for a follow-up visit. Thank you CC: Melchor Winslow. Giana RT. MRI of thoracic and lumbar spine: There is widespread osseous metastatic disease involving the thoracic and lumbar spine. There are pathological compression fractures at T5 and L2. No canal compromise within the thoracic or lumbar spine. No cord compression or abnormal intramedullary signal changes. - Time Spent With Patient Total time spent is greater than 50% in coordination of care (as documented) at patient's floor/unit and/or counseling patient: 25 - 35 minutes
[2020-09-08 11:18] LABS: Platelet Count 86 X10*3/uL (160-400); White Blood Count 2.4 X10*3/uL (4.8-10.8)
[2020-09-08 11:43] LABS: Alanine Aminotransferase 11 U/L (0-31); Albumin Level 3.7 g/dL (3.5-5.0); Alkaline Phosphatase 52 U/L (39-117); Anion Gap 13 (12-20); Aspartate Amino Transferase 9 U/L (5-31); Bilirubin Total 0.2 mg/dL (0.0-1.0); Blood Urea Nitrogen 37 mg/dL (9-16); Calcium 8.2 mg/dL (8.4-10.2); Carbon Dioxide 22 mmol/L (22-29); Chloride 110 mmol/L (96-108); Estimated Glomerular Filt Rate 30; Glucose Random 152 mg/dL (60-115); Potassium 4.1 mmol/l (3.3-5.1); Sodium 141 mmol/L (135-145); Total Protein 6.2 g/dL (6.5-8.0)
--- NOTE | 2020-09-08 13:12 | MHC.HEMONC ---
Patient here for follow-up. Labs drawn. Clinical summary updated with nurse. Provider seen patient. Awaiting imaging (orders given to Shavon) for follow-up.
--- NOTE | 2020-09-08 13:15 | MHC.HEMONCSW ---
pa for ct chest with c, mri lumbar and thoracic spine w&wo c went to [facility] clinical review. c# [id number] wait decision.
[2020-09-08 13:41] LABS: SLIDE REVIEW VERIFIED
--- NOTE | 2020-09-09 08:49 | MHC.HEMONCSW ---
CT CHEST WITH C AND MRI'S OF THORACIC AND LUMBAR SPINE WITH C PLACED IN [facility] A# [id number] 09/08/20 TO 03/07/21
[2020-09-15 13:06] LABS: Basophils Percent Auto 0.4 % (0-2); Eosinophils Absolute Auto 0.1 X10*3/uL (0.0-0.4); Eosinophils Percent Auto 2.9 % (0-4); Hematocrit 30.2 % (37-47); Hemoglobin 9.9 g/dl (12.0-16.0); Imm Gran Abs Auto 0.02 X10*3/uL (0.00-0.03); Imm Gran Pct Auto 0.7 % (0.0-0.4); Lymphocytes Absolute Auto 0.4 X10*3/uL (1.2-4.9); Lymphocytes Percent Auto 15.1 % (20-40); MANUAL DIFF FLAG SCAN; Mean Corpuscular HGB Conc 32.8 g/dl (31.0-35.0); Mean Corpuscular Hemoglobin 33.7 pg (27.0-33.0); Mean Corpuscular Volume 102.7 fL (80-98); Monocytes Absolute Auto 0.3 X10*3/uL (0.1-1.2); Monocytes Percent Auto 10.8 % (2-11); Neutrophils Percent Auto 70.1 % (45-73); Red Blood Count 2.94 X10*6/uL (4.20-5.50); Red Cell Distribution Width 12.4 % (11.0-16.0); SCAN SMEAR FLAG 1; White Blood Count 2.8 X10*3/uL (4.8-10.8)
[2020-09-15 13:09] LABS: Platelet Count 84 X10*3/uL (160-400)
[2020-09-15 13:16] VITALS: BP 147/83; PULSE 81; RESP 18; TEMP 36.5; O2SAT 100; BMI 16.6
[2020-09-15 13:25] LABS: SLIDE REVIEW VERIFIED
[2020-09-15 13:36] LABS: Alanine Aminotransferase 12 U/L (0-31); Albumin Level 3.8 g/dL (3.5-5.0); Alkaline Phosphatase 52 U/L (39-117); Anion Gap 12 (12-20); Aspartate Amino Transferase 11 U/L (5-31); Bilirubin Total 0.3 mg/dL (0.0-1.0); Blood Urea Nitrogen 30 mg/dL (9-16); Calcium 9.2 mg/dL (8.4-10.2); Carbon Dioxide 24 mmol/L (22-29); Chloride 108 mmol/L (96-108); Creatinine Clr Calc Pharmacy 23.4; Estimated Glomerular Filt Rate 33; Glucose Random 94 mg/dL (60-115); Potassium 4.9 mmol/l (3.3-5.1); Sodium 139 mmol/L (135-145); Total Protein 6.3 g/dL (6.5-8.0)
--- NOTE | 2020-12-01 14:19 | HO.HEMONCPA ---
PA FOR XGEVA INITIATED. WAITING ON RESPONSE
--- NOTE | 2020-12-03 10:19 | HO.HEMONCPA ---
Addendum entered by Jory Cunha 12/03/20 15:13: Correction, tracking #[id number] Original Note: Submitted PA request for Denosumab, went to clinical review. Tracking #[id number]
--- NOTE | 2020-12-07 09:20 | HO.HEMONCPA ---
PA request for Denosumab was APPROVED. Auth#[id number], approved from 12/03/2020 through 12/02/2021. Scanning auth into patient's chart.
[2020-12-14 13:23] VITALS: BP 138/93; PULSE 80; RESP 18; TEMP 36.6; O2SAT 98; BMI 16.9
[2020-12-14 13:26] LABS: Eosinophils Absolute Auto 0.1 X10*3/uL (0.0-0.4); Eosinophils Percent Auto 1.8 % (0-4); Hematocrit 32.9 % (37-47); Hemoglobin 10.6 g/dl (12.0-16.0); Imm Gran Abs Auto 0.03 X10*3/uL (0.00-0.03); Imm Gran Pct Auto 0.9 % (0.0-0.4); Lymphocytes Absolute Auto 0.3 X10*3/uL (1.2-4.9); Lymphocytes Percent Auto 9.9 % (20-40); MANUAL DIFF FLAG SCAN; Mean Corpuscular HGB Conc 32.2 g/dl (31.0-35.0); Mean Corpuscular Hemoglobin 33.1 pg (27.0-33.0); Mean Corpuscular Volume 102.8 fL (80-98); Monocytes Absolute Auto 0.3 X10*3/uL (0.1-1.2); Monocytes Percent Auto 9.9 % (2-11); Neutrophils Absolute Auto 2.6 X10*3/uL (2.0-8.3); Neutrophils Percent Auto 77.5 % (45-73); Platelet Count 100 X10*3/uL (160-400); Red Cell Distribution Width 13.2 % (11.0-16.0); SCAN SMEAR FLAG 1; White Blood Count 3.3 X10*3/uL (4.8-10.8)
[2020-12-14 13:52] LABS: SLIDE REVIEW VERIFIED
[2020-12-14 13:57] LABS: Alanine Aminotransferase 23 U/L (0-31); Alkaline Phosphatase 88 U/L (39-117); Anion Gap 15 (12-20); Aspartate Amino Transferase 17 U/L (5-31); Bilirubin Total 0.4 mg/dL (0.0-1.0); Blood Urea Nitrogen 37 mg/dL (9-16); Calcium 9.8 mg/dL (8.4-10.2); Carbon Dioxide 24 mmol/L (22-29); Chloride 105 mmol/L (96-108); Creatinine Clr Calc Pharmacy 18.8; Estimated Glomerular Filt Rate 26; Glucose Random 120 mg/dL (60-115); Potassium 5.2 mmol/L (3.3-5.1); Sodium 139 mmol/L (135-145)
--- NOTE | 2020-12-14 15:31 | MHC.HEMONC ---
Xgeva well tolerated to left upper arm. VSS. Labs reviewed. Patient to return in 3 months for injection and follow up with Dr. Haas.
--- NOTE | 2020-12-14 16:04 | MHC.HEMONCSW ---
PATIENT HERE FOR TREATMENT ACCOMPANIED BY HER REMAINS INDEPENDENT, REPORTS COPING FAIRLY WELL WITH EXCEPTION TO PAIN WHICH IS CHRONIC. SHE IS RECEIVING MEDICATIONS FOR THIS. DENIES OTHER DISTRESS OR CONCERNS. EDUCATION AND SUPPORT PROVIDED.
[2021-03-11 11:47] LABS: MANUAL DIFF FLAG NO
[2021-03-11 11:50] LABS: Basophils Percent Auto 0.3 % (0-2); Eosinophils Absolute Auto 0.1 X10*3/uL (0.0-0.4); Eosinophils Percent Auto 2.5 % (0-4); Hematocrit 28.6 % (37-47); Hemoglobin 9.2 g/dl (12.0-16.0); Imm Gran Abs Auto 0.02 X10*3/uL (0.00-0.03); Imm Gran Pct Auto 0.6 % (0.0-0.4); Lymphocytes Absolute Auto 0.4 X10*3/uL (1.2-4.9); Lymphocytes Percent Auto 11.3 % (20-40); Mean Corpuscular HGB Conc 32.2 g/dl (31.0-35.0); Mean Corpuscular Hemoglobin 32.9 pg (27.0-33.0); Mean Corpuscular Volume 102.1 fL (80-98); Mean Platelet Volume 9.1 fL (9.4-12.3); Monocytes Absolute Auto 0.3 X10*3/uL (0.1-1.2); Monocytes Percent Auto 7.8 % (2-11); Neutrophils Absolute Auto 2.5 X10*3/uL (2.0-8.3); Neutrophils Percent Auto 77.5 % (45-73); Platelet Count 103 X10*3/uL (160-400); Red Cell Distribution Width 13.2 % (11.0-16.0); White Blood Count 3.2 X10*3/uL (4.8-10.8)
[2021-03-11 11:53] VITALS: BP 177/98; PULSE 82; RESP 18; TEMP 36.6; O2SAT 98; BMI 17.0
[2021-03-11 12:19] LABS: Alanine Aminotransferase 10 U/L (0-31); Albumin Level 3.7 g/dL (3.5-5.0); Alkaline Phosphatase 104 U/L (39-117); Anion Gap 12 (12-20); Aspartate Amino Transferase 13 U/L (5-31); Bilirubin Total 0.3 mg/dL (0.0-1.0); Blood Urea Nitrogen 31 mg/dL (9-16); Calcium 9.8 mg/dL (8.4-10.2); Carbon Dioxide 24 mmol/L (22-29); Chloride 108 mmol/L (96-108); Creatinine Clr Calc Pharmacy 18.8; Estimated Glomerular Filt Rate 25; Glucose Random 167 mg/dL (60-115); Potassium 4.5 mmol/L (3.3-5.1); Sodium 139 mmol/L (135-145); Total Protein 6.5 g/dL (6.5-8.0)
[2021-03-11 12:31] VITALS: BP 137/66
--- NOTE | 2021-03-11 12:41 | P.PNHO_ITS ---
Medical Summary - Medical Summary Date of Service: 03/11/21 Chief complaint: follow-up for: Lung cancer. 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 CURRENT THERAPY: Completed radiation to the neck on October 16. Completed RT to Hip, in August. B12 injection. Received 1st cycle of Carboplatin and Alimta based chemotherapy December 26. Was switched to Carbo/Gemzar. Received cycle 4 of chemo, on March 12, 2020. Cycle 5 on April 16. Interval History Interval history: This is a pleasant 80 year-old lady, here for a follow-up visit. Overall she is not feeling too well. Lately she has noticed low back pain. it is not too bad. Only rarely would she take anything for it, other than Tylenol. She has had a chronic weakness in her legs. Her balance has been off. Ssometimes she has a hard time standing up. There appears to be weakness below her knees. She can manage inside her home, where she holds on to diop but is unable to walk out doors by herself. She does feel numbness, behind her knees. She denies any bladder problems. She is constipated. Her neck feels good. She denies chest pain nor shortness of breath. No fever nor chills. Sometimes she just feels weak and tired. Appetite is Actually better. She has been surviving on jelly doughnuts. She denies chest pain or trouble breathing. She denies abdominal pain, just occasional self-limited cramping. No nausea v omiting, heartburn nor indigestion. Bowels are working without any gross blood in it. She denies any gross blood in the stools. Sometimes, she can not eat well because of the dentures being loose. Her weight is actually stable. She is in good spirits. The rest of the review of systems, is unremarkable. Review of Systems - Constitutional Reports no additional constitutional complaints, Reports lack of energy, Denies poor appetite, Denies weight loss - Eyes Reports no additional eye complaints - ENT Reports no additional ear, nose, mouth, and throat complaints - Cardiovascular Reports no additional cardiovascular complaints - Respiratory Reports no additional respiratory complaints, Denies chest congestion, Denies cough - Gastrointestinal Reports no additional gastrointestinal complaints, Denies constant urge to pass stool, Denies change in stools, Denies nausea - Genitourinary Reports no additional female genitourinary complaints - Musculoskeletal Reports no additional musculoskeletal complaints, Reports abnormal walking, Reports back pain, Reports joint pain, Reports muscle weakness, Denies neck pain - Integumentary/Breasts Skin/Breast: Reports no additional skin complaints - Neurologic Reports no additional neurologic complaints, Reports abnormal gait, Reports lack of coordination - Psychiatric Reports no additional psychiatric complaints - Endocrine Reports no additional endocrine complaints - Hematologic/Lymphatic Reports no additional hematologic/lymphatic complaints - Allergic/Immunologic Reports no additional allergic/immunologic complaints [facility] Medical History: Medical History (Last Updated 09/08/20 @ 11:12 by Lillian Bear RN) Cataract HTN (hypertension) Functional capacity: uses cane/walker Patient : No Social History: Social History (Last Updated 03/11/21 @ 12:25 by Selina Lewis RN) Alcohol History: Alcohol intake: current Alcohol History Details: Alcohol intake frequency: holiday/special occasion Tobacco History: Cigarette Packs Per Day: 1 Smoke Quit Date: 2000 Advance Directives: Advance Directives: No Advance Directives Information Provided: No Nutrition Assessment: Patient : No Oncology Screenings - ECOG Performance Status ECOG Performance Status: 1 Home Medications and Allergies Current Medications: Current Medications Generic Name Dose Route Start Last Admin Trade Name Freq PRN Reason Stop Dose Admin Denosumab 120 mg 03/11/21 00:00 Denosumab 120 Mg/1.7 Ml Vial SUBCUT 03/11/21 23:59 ONCE STACY Home Medications Medication Instructions Recorded Confirmed Type aspirin 81 mg PO DAILY 06/23/20 03/11/21 History Allergies Allergy/AdvReac Type Severity Reaction Status Date / Time lactose [LACTOSE] AdvReac Mild DIARRHEA,BL Verified 06/23/20 13:31 OATING Exam Vital signs: Vital Signs Temp 97.8 F 03/11/21 11:53 Pulse 82 03/11/21 11:53 Resp 18 03/11/21 11:53 BP 137/66 03/11/21 12:31 Pulse Ox 98 03/11/21 11:53 Intake & Output 03/10/21 03/11/21 03/11/21 18:59 06:59 18:59 Other: Weight 49.3 kg Weight in Grams 89165 Weight 49.3 kg Body Mass Index 17.0 - Constitutional Present: mild distress - Routine HEENT Exam Head: Present: normal inspection Eye: Present: normal appearance ENT: Present: mucous membranes moist - Routine Neck Exam Present: full ROM - Routine Respiratory Exam Present: decreased breath sounds - Routine Cardiovascular Exam Cardiovascular: Present: RRR, S1, S2 - Routine Abdominal Exam Present: soft, nontender - Routine Rectal Exam Patient deferred: digital exam - Routine Extremities Exam Present: nontender - Routine Back/Spine/Pelvis Exam Back/Spine: Present: full ROM - Routine Skin Exam Present: intact - Routine Neurological Exam Present: alert, oriented X3 - Detailed Neurological Exam: Coma Scale Eye Opening: Spontaneous (4) - Routine Psychiatric Exam Present: normal affect Data - Labs CBC & Chem 7: 03/11/21 11:43 03/11/21 11:43 Labs: 06/23/20 00:00 Denosumab [Xgeva] 120 mg SUBCUT ONCE 06/23/20 13:18 CMP [Comprehensive Met. Panel] Routine Complete Blood Count Auto Diff Routine SLIDE REVIEW Routine Laboratory Last Values WBC 4.0 X10*3/uL (4.8-10.8) L 06/23/20 13:18 RBC 2.49 X10*6/uL (4.20-5.50) L 06/23/20 13:18 Hgb 8.5 g/dl (12.0-16.0) L 06/23/20 13:18 Hct 26.8 % (37-47) L 06/23/20 13:18 MCV 107.6 fL (80-98) H 06/23/20 13:18 MCH 34.1 pg (27.0-33.0) H 06/23/20 13:18 MCHC 31.7 g/dl (31.0-35.0) 06/23/20 13:18 RDW 19.5 % (11.0-16.0) H 06/23/20 13:18 Plt Count 66 X10*3/uL (160-400) L 06/23/20 13:18 MPV 9.8 fL (9.4-12.3) 06/23/20 13:18 Immature Gran % (Auto) 0.5 % (0.0-0.4) H 06/23/20 13:18 Neut % (Auto) 78.4 % (45-73) H 06/23/20 13:18 Lymph % (Auto) 11.5 % (20-40) L 06/23/20 13:18 [place] % (Auto) 8.3 % (2-11) 06/23/20 13:18 Eos % (Auto) 0.8 % (0-4) 06/23/20 13:18 Baso % (Auto) 0.5 % (0-2) 06/23/20 13:18 Lymph # (Auto) 0.5 X10*3/uL (1.2-4.9) L 06/23/20 13:18 [place] # (Auto) 0.3 X10*3/uL (0.1-1.2) 06/23/20 13:18 Eos # (Auto) 0.0 X10*3/uL (0.0-0.4) 06/23/20 13:18 Baso # (Auto) 0.0 X10*3/uL (0.0-0.2) 06/23/20 13:18 Abs Immat Gran (auto) 0.02 X10*3/uL (0.00-0.03) 06/23/20 13:18 Absolute Neuts (auto) 3.1 X10*3/uL (2.0-8.3) 06/23/20 13:18 Absolute Nucleated RBC 0.000 X10*3/uL (0.0-0.012) 06/23/20 13:18 Nucleated RBC % (auto) 0.0 /100WBC (0.0-0.2) 06/23/20 13:18 Smear Tech's Comments VERIFIED 06/23/20 13:18 Sodium 136 mmol/L (135-145) 06/23/20 13:18 Potassium 4.8 mmol/l (3.3-5.1) 06/23/20 13:18 Chloride 107 mmol/L (96-108) 06/23/20 13:18 Carbon Dioxide 20 mmol/L (22-29) L 06/23/20 13:18 Anion Gap 14 (12-20) 06/23/20 13:18 BUN 17 mg/dL (9-16) H 06/23/20 13:18 Creatinine 1.32 mg/dL (0.5-1.4) 06/23/20 13:18 Estim Creat Clear Calc 25.8 06/23/20 13:18 Estimated GFR 39 06/23/20 13:18 Random Glucose 92 mg/dL (60-115) 06/23/20 13:18 Calcium 8.3 mg/dL (8.4-10.2) L 06/23/20 13:18 Total Bilirubin 0.3 mg/dL (0.0-1.0) 06/23/20 13:18 AST 10 U/L (5-31) 06/23/20 13:18 ALT < 6 U/L (0-31) 06/23/20 13:18 Alkaline Phosphatase 84 U/L (39-117) 06/23/20 13:18 Total Protein 5.7 g/dL (6.5-8.0) L 06/23/20 13:18 Albumin 3.4 g/dL (3.5-5.0) L 06/23/20 13:18 Progress Note: A/P (1) Non-small cell carcinoma of lung Status: Acute Assessment and plan: This is an unfortunate 79 year-old lady with on set of symptoms of right cervical pain, that started about a year ago. She does have a previous history of smoking. MRI of the C-spine from July 20 revealed: There is an expansile lesion involving the right-sided body of C2 extending to the right lamina and right transverse process. This is most consistent with a neoplastic process, likely an osseous metastasis. A bone scan could be obtained to evaluate for other osseous lesions. There is narrowing of the right neural foramen. There is mild mass effect on the thecal sac, but there is no spinal cord compression or central stenosis. CT scan of the chest from July 25 revealed: Moderate-sized left upper lobe spiculated lesion measuring 2.1 cm. There are multiple additional lung nodules, likely metastatic. Recommend CT/PET exam and if clinically indicated, biopsy. There are no abnormal mediastinal lymph nodes seen yet. Normal adrenal glands. Bone scan from July 25 revealed: Metastatic tumor involvement of bone with prominent abnormalities in the spine, right frontoparietal skull, right fourth rib, and left sacral ala. An additional abnormality in the supra-acetabular left iliac bone may also be metastatic in etiology, but this alternatively may represent an arthritic or degenerative lesion. The tumor markers are as follows: LDH: 272. CEA: 1963.30. CA 125: 294. CA 19-9: 696. PET scan from August 29 revealed: There is extensive metastatic bone disease most prominent in the cervical, thoracic lumbar and the sacral spine. Also visualized is solitary nodule left upper lobe, metabolically active and likely source of primary lesion. Other pulmonary nodules seen on the previous CT chest exam 07/25/2019 are not metabolically active. The correct metastatic spine levels are as S3, L2 and T5 vertebra. Biopsy of L1 vertebrae from September 12 revealed: Bone, L1, biopsy: Metastatic moderately differentiated adenocarcinoma consistent with lung primary. Molecular/ancillary testing (EGFR, ALK, ROS, BRAF and PD-L1) testing is underway. Results will be addended. She was referred her for radiation therapy to the neck for pain control. She completed the radiation on MondayOctober 16. It does appear to have helped. Repeat CT scan October 18 revealed: No significant change in multiple bilateral pulmonary nodules. The dominant left upper lobe nodule paramediastinal is stable. The semisolid nodule in the left upper lobe posteriorly is also stable. No abnormal mediastinal adenopathy seen. Lytic lesions involving T5, L1 vertebra and right anterior 4th rib are stable. Repeat biopsy of the L1 vertebra: L2, fine needle aspiration:Positive for malignancy, consistent with metastatic lung carcinoma. Molecular testing for: EGFR, ALK, ROS1 and BRAF came back negative. PD-L1 results: Negative. Back in October, Patient completed radiation therapy to the neck and left hip. She has had some improvement in the pain. December 26, she was started on Carboplatin and Alimta based regimen Q 21 days x 6 cycles. Unfortunately she did not tolerate it too well. She developed significant thrombocytopenia. l decided to switch to Carboplatin and Gemcitabine based chemotherapy. l started out with Gemzar 800 milligram/meter squared. She received cycle 3, on March 12. I elected to omit day 8 Gemzar on account of significant pancytopenia. However Her platelets still did plummet. CT scan of the chest from 05/19: 1. Several small pulmonary nodules have improved. 2. The larger nodules are stable in the left upper lobe. 3. No abnormal mediastinal or axillary adenopathy. The sclerotic T5, T6 and L1 lesions are stable. There is mild pathological compression fracture T5 vertebra with posterior sclerotic bony component, stable. The T6 and L1 sclerotic lesions are new. There was a lytic area seen within the L1 vertebra on the previous study. CT scan does show improvement. She has had such a hard time tolerating the treatment. With low energy level fa ilure to thrive. She had significant bone marrow suppression, requiring transfusion of blood and platelets. At that point she elected to take a break. It is important to focus on her quality of life as well. That is important to her. She is having numbness and leg weakness, below the knees. With her history of bone disease I am concerned about cord compression. MRI of thoracic and lumbar spine: There is widespread osseous metastatic disease involving the thoracic and lumbar spine. There are pathological compression fractures at T5 and L2. No canal compromise within the thoracic or lumbar spine. No cord compression or abnormal intramedullary signal changes. She is holding her own. Denies new complaints. She is not too keen on doing too many imaging or follow the aggressive route. PLAN: I will proceed with a CT scan of her chest for restaging. She will recieve her next Denosumab, today. she will continue totake the Marinol and eat better. She will try to be more active, She will return in 3 months for a follow-up visit. Thank you CC: Melchor Winslow. Giana RT. - Time Spent With Patient Time Spent with Patient (in minutes): 25
--- NOTE | 2021-03-11 14:26 | MHC.HEMONC ---
Exam with Dr Haas. Labs obtaine e
--- NOTE | 2021-03-11 14:28 | MHC.HEMONC ---
Exam with Dr Haas. Labs obtained and reviewed with patient. Medications/Clinical Summary updated by this RN. Patient denies pain. Densosumab injection to Left Upper Arm. Follow up scheduled for 06/18/2021.
[2021-04-08 12:00] VITALS: BP 137/81; PULSE 93; RESP 18; TEMP 36.4; O2SAT 97; BMI 16.8
[2021-04-08] MEDS: 0.9 % Sodium Chloride 1,000 ML 500 ML IVCONT (12:12)
[2021-04-08 14:30] LABS: MANUAL DIFF FLAG NO
[2021-04-08 14:33] LABS: Basophils Percent Auto 0.2 % (0-2); Eosinophils Absolute Auto 0.1 X10*3/uL (0.0-0.4); Eosinophils Percent Auto 1.5 % (0-4); Hemoglobin 8.6 g/dl (12.0-16.0); Imm Gran Abs Auto 0.04 X10*3/uL (0.00-0.03); Imm Gran Pct Auto 0.9 % (0.0-0.4); Lymphocytes Absolute Auto 0.4 X10*3/uL (1.2-4.9); Lymphocytes Percent Auto 9.6 % (20-40); Mean Corpuscular HGB Conc 31.9 g/dl (31.0-35.0); Mean Corpuscular Hemoglobin 32.8 pg (27.0-33.0); Mean Corpuscular Volume 103.1 fL (80-98); Monocytes Absolute Auto 0.4 X10*3/uL (0.1-1.2); Neutrophils Absolute Auto 3.6 X10*3/uL (2.0-8.3); Neutrophils Percent Auto 78.8 % (45-73); Platelet Count 117 X10*3/uL (160-400); Red Blood Count 2.62 X10*6/uL (4.20-5.50); Red Cell Distribution Width 13.6 % (11.0-16.0); White Blood Count 4.6 X10*3/uL (4.8-10.8)
[2021-04-08 15:04] LABS: Alanine Aminotransferase 7 U/L (0-31); Albumin Level 3.6 g/dL (3.5-5.0); Alkaline Phosphatase 117 U/L (39-117); Anion Gap 13 (12-20); Aspartate Amino Transferase 13 U/L (5-31); Bilirubin Total 0.3 mg/dL (0.0-1.0); Blood Urea Nitrogen 33 mg/dL (9-16); Calcium 8.7 mg/dL (8.4-10.2); Carbon Dioxide 20 mmol/L (22-29); Chloride 111 mmol/L (96-108); Creatinine Clr Calc Pharmacy 22.1; Estimated Glomerular Filt Rate 31; Glucose Random 74 mg/dL (60-115); Potassium 4.5 mmol/L (3.3-5.1); Sodium 139 mmol/L (135-145); Total Protein 6.4 g/dL (6.5-8.0)
--- NOTE | 2021-04-08 15:30 | MHC.HEMONC ---
Pt scheduled for IV hydration prior to CT Scan- 1L administered over 2 hours. #20 to left AC placed. Post BUN/CREAT .. Call placed to CT to report results. Patient transported to CT scan via wheelchair. Patient will return in June for exam and injection.
[2021-06-18 14:12] LABS: MANUAL DIFF FLAG NO
[2021-06-18 14:17] LABS: Basophils Percent Auto 0.3 % (0-2); Eosinophils Absolute Auto 0.1 X10*3/uL (0.0-0.4); Eosinophils Percent Auto 1.8 % (0-4); Hematocrit 27.8 % (37-47); Imm Gran Abs Auto 0.04 X10*3/uL (0.00-0.03); Lymphocytes Absolute Auto 0.3 X10*3/uL (1.2-4.9); Lymphocytes Percent Auto 7.5 % (20-40); Mean Corpuscular HGB Conc 32.4 g/dl (31.0-35.0); Mean Corpuscular Hemoglobin 32.8 pg (27.0-33.0); Mean Corpuscular Volume 101.5 fL (80-98); Mean Platelet Volume 9.2 fL (9.4-12.3); Monocytes Absolute Auto 0.4 X10*3/uL (0.1-1.2); Monocytes Percent Auto 10.1 % (2-11); Neutrophils Absolute Auto 3.1 X10*3/uL (2.0-8.3); Neutrophils Percent Auto 79.3 % (45-73); Platelet Count 110 X10*3/uL (160-400); Red Blood Count 2.74 X10*6/uL (4.20-5.50); Red Cell Distribution Width 13.3 % (11.0-16.0); White Blood Count 3.9 X10*3/uL (4.8-10.8)
[2021-06-18 14:37] LABS: Alanine Aminotransferase 8 U/L (0-31); Albumin Level 3.8 g/dL (3.5-5.0); Alkaline Phosphatase 147 U/L (39-117); Anion Gap 14 (12-20); Aspartate Amino Transferase 15 U/L (5-31); Bilirubin Total 0.6 mg/dL (0.0-1.0); Blood Urea Nitrogen 25 mg/dL (9-16); Calcium 9.5 mg/dL (8.4-10.2); Carbon Dioxide 24 mmol/L (22-29); Chloride 103 mmol/L (96-108); Creatinine Clr Calc Pharmacy 19.6; Estimated Glomerular Filt Rate 27; Glucose Random 113 mg/dL (60-115); Potassium 4.7 mmol/L (3.3-5.1); Sodium 136 mmol/L (135-145); Total Protein 6.8 g/dL (6.5-8.0)
--- NOTE | 2021-06-18 14:42 | P.PNHO_ITS ---
Medical Summary - Medical Summary Date of Service: 06/18/21 Chief complaint: Follow-up for non-small cell lung carcinoma. 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 CURRENT THERAPY: Completed radiation to the neck on October 16. Completed RT to Hip, in August. B12 injection. Received 1st cycle of Carboplatin and Alimta based chemotherapy December 26. Was switched to Carbo/Gemzar. Received cycle 4 of chemo, on March 12, 2020. Cycle 5 on April 16. Interval History Interval history: This is a pleasant 80 year-old lady, here for a follow-up visit. She has been feeling quite well, except for low back pain. It is not too bad. Only rarely would she take anything for it, other than Tylenol. She sometimes gets numbness behind the knees down. Her neck feels good. She denies chest pain nor shortness of breath. No fever nor chills. Her energy level is at baseline. Appetite is actually better. Her weight is actually stable. She denies chest pain or trouble breathing. She denies abdominal pain, just occasional self-limited cramping. No nausea vomiting, heartburn nor indigestion. Bowels are working without any gross blood in it. She denies any gross blood in the stools. She is in good spirits. The rest of the review of systems, is unremarkable. Previous complaints: She has had a chronic weakness in her legs. Her balance has been off. Ssometimes she has a hard time standing up. There appears to be weakness below her knees. She can manage inside her home, where she holds on to diop but is unable to walk out doors by herself. She does feel numbness, behind her knees. She denies any bladder problems. She is constipated. Review of Systems - Constitutional Reports no additional constitutional complaints - Eyes Reports no additional eye complaints - ENT Reports no additional ear, nose, mouth, and throat complaints - Cardiovascular Reports no additional cardiovascular complaints - Respiratory Reports no additional respiratory complaints - Gastrointestinal Reports no additional gastrointestinal complaints - Genitourinary Reports no additional female genitourinary complaints - Musculoskeletal Reports no additional musculoskeletal complaints - Integumentary/Breasts Skin/Breast: Reports no additional skin complaints - Neurologic Reports no additional neurologic complaints, Reports abnormal gait, Reports lack of coordination - Psychiatric Reports no additional psychiatric complaints - Endocrine Reports no additional endocrine complaints - Hematologic/Lymphatic Reports no additional hematologic/lymphatic complaints - Allergic/Immunologic Reports no additional allergic/immunologic complaints [facility] Medical History: Medical History (Last Updated 09/08/20 @ 11:12 by Lillian Bear RN) Cataract HTN (hypertension) Functional capacity: uses cane/walker Patient : No Social History: Social History (Last Updated 03/11/21 @ 12:25 by Selina Lewis RN) Alcohol History: Alcohol intake: current Alcohol History Details: Alcohol intake frequency: holiday/special occasion Tobacco History: Cigarette Packs Per Day: 1 Smoke Quit Date: 2000 Advance Directives: Advance Directives: No Advance Directives Information Provided: No Nutrition Assessment: Patient : No Oncology Screenings - ECOG Performance Status ECOG Performance Status: 1 Home Medications and Allergies Home Medications Medication Instructions Recorded Confirmed Type aspirin 81 mg tablet 81 mg PO DAILY 06/23/20 03/11/21 History Allergies Allergy/AdvReac Type Severity Reaction Status Date / Time lactose [LACTOSE] AdvReac Mild DIARRHEA,BL Verified 06/23/20 13:31 OATING Exam Vital signs: Vital Signs Temp 97.5 F 04/08/21 12:00 Pulse 93 04/08/21 12:00 Resp 18 04/08/21 12:00 BP 137/81 04/08/21 12:00 Pulse Ox 97 04/08/21 12:00 Weight 48.7 kg Body Mass Index 16.8 - Constitutional Present: mild distress - Routine HEENT Exam Head: Present: normal inspection Eye: Present: normal appearance ENT: Present: mucous membranes moist - Routine Neck Exam Present: full ROM - Routine Respiratory Exam Present: decreased breath sounds - Routine Cardiovascular Exam Cardiovascular: Present: RRR, S1, S2 - Routine Abdominal Exam Present: soft, nontender - Routine Rectal Exam Patient deferred: digital exam - Routine Extremities Exam Present: nontender - Routine Back/Spine/Pelvis Exam Back/Spine: Present: full ROM - Routine Skin Exam Present: intact - Routine Neurological Exam Present: alert, oriented X3 - Detailed Neurological Exam: Coma Scale Eye Opening: Spontaneous (4) - Routine Psychiatric Exam Present: normal affect Data - Labs CBC & Chem 7: 06/18/21 14:10 06/18/21 14:10 Labs: 06/23/20 00:00 Denosumab [Xgeva] 120 mg SUBCUT ONCE 06/23/20 13:18 CMP [Comprehensive Met. Panel] Routine Complete Blood Count Auto Diff Routine SLIDE REVIEW Routine Laboratory Last Values WBC 4.0 X10*3/uL (4.8-10.8) L 06/23/20 13:18 RBC 2.49 X10*6/uL (4.20-5.50) L 06/23/20 13:18 Hgb 8.5 g/dl (12.0-16.0) L 06/23/20 13:18 Hct 26.8 % (37-47) L 06/23/20 13:18 MCV 107.6 fL (80-98) H 06/23/20 13:18 MCH 34.1 pg (27.0-33.0) H 06/23/20 13:18 MCHC 31.7 g/dl (31.0-35.0) 06/23/20 13:18 RDW 19.5 % (11.0-16.0) H 06/23/20 13:18 Plt Count 66 X10*3/uL (160-400) L 06/23/20 13:18 MPV 9.8 fL (9.4-12.3) 06/23/20 13:18 Immature Gran % (Auto) 0.5 % (0.0-0.4) H 06/23/20 13:18 Neut % (Auto) 78.4 % (45-73) H 06/23/20 13:18 Lymph % (Auto) 11.5 % (20-40) L 06/23/20 13:18 [place] % (Auto) 8.3 % (2-11) 06/23/20 13:18 Eos % (Auto) 0.8 % (0-4) 06/23/20 13:18 Baso % (Auto) 0.5 % (0-2) 06/23/20 13:18 Lymph # (Auto) 0.5 X10*3/uL (1.2-4.9) L 06/23/20 13:18 [place] # (Auto) 0.3 X10*3/uL (0.1-1.2) 06/23/20 13:18 Eos # (Auto) 0.0 X10*3/uL (0.0-0.4) 06/23/20 13:18 Baso # (Auto) 0.0 X10*3/uL (0.0-0.2) 06/23/20 13:18 Abs Immat Gran (auto) 0.02 X10*3/uL (0.00-0.03) 06/23/20 13:18 Absolute Neuts (auto) 3.1 X10*3/uL (2.0-8.3) 06/23/20 13:18 Absolute Nucleated RBC 0.000 X10*3/uL (0.0-0.012) 06/23/20 13:18 Nucleated RBC % (auto) 0.0 /100WBC (0.0-0.2) 06/23/20 13:18 Smear Tech's Comments VERIFIED 06/23/20 13:18 Sodium 136 mmol/L (135-145) 06/23/20 13:18 Potassium 4.8 mmol/l (3.3-5.1) 06/23/20 13:18 Chloride 107 mmol/L (96-108) 06/23/20 13:18 Carbon Dioxide 20 mmol/L (22-29) L 06/23/20 13:18 Anion Gap 14 (12-20) 06/23/20 13:18 BUN 17 mg/dL (9-16) H 06/23/20 13:18 Creatinine 1.32 mg/dL (0.5-1.4) 06/23/20 13:18 Estim Creat Clear Calc 25.8 06/23/20 13:18 Estimated GFR 39 06/23/20 13:18 Random Glucose 92 mg/dL (60-115) 06/23/20 13:18 Calcium 8.3 mg/dL (8.4-10.2) L 06/23/20 13:18 Total Bilirubin 0.3 mg/dL (0.0-1.0) 06/23/20 13:18 AST 10 U/L (5-31) 06/23/20 13:18 ALT < 6 U/L (0-31) 06/23/20 13:18 Alkaline Phosphatase 84 U/L (39-117) 06/23/20 13:18 Total Protein 5.7 g/dL (6.5-8.0) L 06/23/20 13:18 Albumin 3.4 g/dL (3.5-5.0) L 06/23/20 13:18 Assessment and Plan Patient Active problem list reviewed?: Yes (1) Non-small cell carcinoma of lung Status: Acute Assessment and plan: This is an unfortunate 79 year-old lady with on set of symptoms of right cervical pain, that started about a year ago. She does have a previous history of smoking. MRI of the C-spine from July 20 revealed: There is an expansile lesion involving the right-sided body of C2 extending to the right lamina and right transverse process. This is most consistent with a neoplastic process, likely an osseous metastasis. A bone scan could be obtained to evaluate for other osseous lesions. There is narrowing of the right neural foramen. There is mild mass effect on the thecal sac, but there is no spinal cord compression or central stenosis. CT scan of the chest from July 25 revealed: Moderate-sized left upper lobe spiculated lesion measuring 2.1 cm. There are multiple additional lung nodules, likely metastatic. Recommend CT/PET exam and if clinically indicated, biopsy. There are no abnormal mediastinal lymph nodes seen yet. Normal adrenal glands. Bone scan from July 25 revealed: Metastatic tumor involvement of bone with prominent abnormalities in the spine, right frontoparietal skull, right fourth rib, and left sacral ala. An additional abnormality in the supra-acetabular left iliac bone may also be metastatic in etiology, but this alternatively may represent an arthritic or degenerative lesion. The tumor markers are as follows: LDH: 272. CEA: 1963.30. CA 125: 294. CA 19-9: 696. PET scan from August 29 revealed: There is extensive metastatic bone disease most prominent in the cervical, thoracic lumbar and the sacral spine. Also visualized is solitary nodule left upper lobe, metabolically active and likely source of primary lesion. Other pulmonary nodules seen on the previous CT chest exam 07/25/2019 are not metabolically active. The correct metastatic spine levels are as S3, L2 and T5 vertebra. Biopsy of L1 vertebrae from September 12 revealed: Bone, L1, biopsy: Metastatic moderately differentiated adenocarcinoma consistent with lung primary. Molecular/ancillary testing (EGFR, ALK, ROS, BRAF and PD-L1) testing is underway. Results will be addended. She was referred her for radiation therapy to the neck for pain control. She completed the radiation on MondayOctober 16. It does appear to have helped. Repeat CT scan October 18 revealed: No significant change in multiple bilateral pulmonary nodules. The dominant left upper lobe nodule paramediastinal is stable. The semisolid nodule in the left upper lobe posteriorly is also stable. No abnormal mediastinal adenopathy seen. Lytic lesions involving T5, L1 vertebra and right anterior 4th rib are stable. Repeat biopsy of the L1 vertebra: L2, fine needle aspiration:Positive for malignancy, consistent with metastatic lung carcinoma. Molecular testing for: EGFR, ALK, ROS1 and BRAF came back negative. PD-L1 results: Negative. Back in October, Patient completed radiation therapy to the neck and left hip. She has had some improvement in the pain. December 26, she was started on Carboplatin and Alimta based regimen Q 21 days x 6 cycles. Unfortunately she did not tolerate it too well. She developed significant thrombocytopenia. l decided to switch to Carboplatin and Gemcitabine based chemotherapy. l started out with Gemzar 800 milligram/meter squared. She received cycle 3, on March 12. I elected to omit day 8 Gemzar on account of significant pancytopenia. However Her platelets still did plummet. CT scan of the chest from 05/19: 1. Several small pulmonary nodules have improved. 2. The larger nodules are stable in the left upper lobe. 3. No abnormal mediastinal or axillary adenopathy. The sclerotic T5, T6 and L1 lesions are stable. There is mild pathological compression fracture T5 vertebra with posterior sclerotic bony component, stable. The T6 and L1 sclerotic lesions are new. There was a lytic area seen within the L1 vertebra on the previous study. CT scan does show improvement. She has had such a hard time tolerating the treatment. With low energy level failure to thrive. She had significant bone marrow suppression, requiring transfusion of blood and platelets. At that point she elected to take a break. It is important to focus on her quality of life as well. That is important to her. She is having numbness and leg weakness, below the knees. With her history of bone disease I am concerned about cord compression. MRI of thoracic and lumbar spine: There is widespread osseous metastatic disease involving the thoracic and lumbar spine. There are pathological compression fractures at T5 and L2. No canal compromise within the thoracic or lumbar spine. No cord compression or abnormal intramedullary signal changes. She is doing quite well.. Denies new complaints. She is not too keen on doing too many imaging or follow the aggressive route. She had a CT scan of her chest for restaging on 04/09: Emphysema. Stable left upper and lingular nodules and small right lower lobe nodules. Sclerotic metastatic disease to the bone with pathologic compression fractures of the T5 and L2 vertebral bodies. This does not appear appreciably changed from previous MRIs September 2020. There is interval increase in sclerotic T6 vertebral body lesion. PLAN: She recieved her Denosumab, today. She will continue to take the Marinol to improve her nutrition. She is trying to be more active. She will return in 3 months for a follow-up visit. Thank you CC: Melchor Winslow. Giana RT. - Time Spent With Patient Time Spent with Patient (in minutes): 25
[2021-06-18 14:52] VITALS: BP 145/77; PULSE 77; TEMP 37.1; O2SAT 97
--- NOTE | 2021-06-18 15:00 | MHC.HEMONC ---
labs reviewed. Xgeva given. Pt aware of next appt.
--- NOTE | 2021-09-17 13:50 | PM.HEMONCPN ---
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 CURRENT THERAPY: Completed radiation to the neck on October 16. Completed RT to Hip, in August. B12 injection. Received 1st cycle of Carboplatin and Alimta based chemotherapy December 26. Was switched to Carbo/Gemzar. Received cycle 4 of chemo, on March 12, 2020. Cycle 5 on April 16. Interval History Interval history: This is a pleasant 80 year-old lady, here for a follow-up visit. She has been holding her own, except for low back pain. It makes it difficult for her to walk. At home she can get by with walking from [id number]. When she goes out she takes the wheelchair. Only rarely would she take anything for it, other than Tylenol. She still complains of numbness behind the knees down. She denies pain in her neck. She denies chest pain nor shortness of breath. No fever nor chills. Her energy level is at baseline. Appetite is actually better. Her weight is actually stable. She denies abdominal pain, just occasional self-limited cramping. No nausea vomiting, heartburn nor indigestion. Bowels are working without any gross blood in it. She denies any gross blood in the stools. She is in good spirits. The rest of the review of systems, is unremarkable. Previous complaints: She has had a chronic weakness in her legs. Her balance has been off. Ssometimes she has a hard time standing up. There appears to be weakness below her knees. She can manage inside her home, where she holds on to diop but is unable to walk out doors by herself. She does feel numbness, behind her knees. She denies any bladder problems. She is constipated. Review of Systems - Constitutional Reports no additional constitutional complaints - Eyes Reports no additional eye complaints - ENT Reports no additional ear, nose, mouth, and throat complaints - Cardiovascular Reports no additional cardiovascular complaints - Respiratory Reports no additional respiratory complaints - Gastrointestinal Reports no additional gastrointestinal complaints - Genitourinary Reports no additional female genitourinary complaints - Musculoskeletal Reports no additional musculoskeletal complaints - Integumentary/Breasts Skin/Breast: Reports no additional skin complaints - Neurologic Reports no additional neurologic complaints, Reports abnormal gait, Reports lack of coordination - Psychiatric Reports no additional psychiatric complaints - Endocrine Reports no additional endocrine complaints - Hematologic/Lymphatic Reports no additional hematologic/lymphatic complaints - Allergic/Immunologic Reports no additional allergic/immunologic complaints [facility] Medical History: Medical History (Last Updated 09/08/20 @ 11:12 by Lillian Bran RN) Cataract HTN (hypertension) Functional capacity: uses cane/walker Patient : No Social History: Social History (Last Updated 03/11/21 @ 12:25 by Selina Lewis RN) Tobacco History: Cigarette Packs Per Day: 1 Smoke Quit Date: 2000 Advance Directives: Advance Directives: No Advance Directives Information Provided: No Nutrition Assessment: Patient : No Oncology Screenings - ECOG Performance Status ECOG Performance Status: 1 Home Medications and Allergies Home Medications Medication Instructions Recorded Confirmed Type aspirin 81 mg tablet 81 mg PO DAILY 06/23/20 09/17/21 History Allergies Allergy/AdvReac Type Severity Reaction Status Date / Time lactose [LACTOSE] AdvReac Mild DIARRHEA,BL Verified 06/23/20 13:31 OATING Exam Vital signs: Vital Signs Temp 98.8 F 06/18/21 14:52 Pulse 77 06/18/21 14:52 Resp 18 04/08/21 12:00 BP 145/77 H 06/18/21 14:52 Pulse Ox 97 06/18/21 14:52 Weight 48.7 kg BMI result Body Mass Index 16.8 - Constitutional Present: mild distress - Routine HEENT Exam Head: Present: normal inspection Eye: Present: normal appearance ENT: Present: mucous membranes moist - Routine Neck Exam Present: full ROM - Routine Respiratory Exam Present: decreased breath sounds - Routine Cardiovascular Exam Cardiovascular: Present: RRR, S1, S2 - Routine Abdominal Exam Present: soft, nontender - Routine Rectal Exam Patient deferred: digital exam - Routine Extremities Exam Present: nontender - Routine Back/Spine/Pelvis Exam Back/Spine: Present: full ROM - Routine Skin Exam Present: intact - Routine Neurological Exam Present: alert, oriented X3 - Detailed Neurological Exam: Coma Scale Eye Opening: Spontaneous (4) - Routine Psychiatric Exam Present: normal affect Data - Labs CBC & Chem 7: 09/17/21 14:03 09/17/21 14:03 Assessment and Plan Patient Active problem list reviewed?: Yes (1) Non-small cell carcinoma of lung Status: Acute Assessment and plan: This is an unfortunate 79 year-old lady with on set of symptoms of right cervical pain, that started about a year ago. She does have a previous history of smoking. MRI of the C-spine from July 20 revealed: There is an expansile lesion involving the right-sided body of C2 extending to the right lamina and right transverse process. This is most consistent with a neoplastic process, likely an osseous metastasis. A bone scan could be obtained to evaluate for other osseous lesions. There is narrowing of the right neural foramen. There is mild mass effect on the thecal sac, but there is no spinal cord compression or central stenosis. CT scan of the chest from July 25 revealed: Moderate-sized left upper lobe spiculated lesion measuring 2.1 cm. There are multiple additional lung nodules, likely metastatic. Recommend CT/PET exam and if clinically indicated, biopsy. There are no abnormal mediastinal lymph nodes seen yet. Normal adrenal glands. Bone scan from July 25 revealed: Metastatic tumor involvement of bone with prominent abnormalities in the spine, right frontoparietal skull, right fourth rib, and left sacral ala. An additional abnormality in the supra-acetabular left iliac bone may also be metastatic in etiology, but this alternatively may represent an arthritic or degenerative lesion. The tumor markers are as follows: LDH: 272. CEA: 1963.30. CA 125: 294. CA 19-9: 696. PET scan from August 29 revealed: There is extensive metastatic bone disease most prominent in the cervical, thoracic lumbar and the sacral spine. Also visualized is solitary nodule left upper lobe, metabolically active and likely source of primary lesion. Other pulmonary nodules seen on the previous CT chest exam 07/25/2019 are not metabolically active. The correct metastatic spine levels are as S3, L2 and T5 vertebra. Biopsy of L1 vertebrae from September 12 revealed: Bone, L1, biopsy: Metastatic moderately differentiated adenocarcinoma consistent with lung primary. Molecular/ancillary testing (EGFR, ALK, ROS, BRAF and PD-L1) testing is underway. Results will be addended. She was referred her for radiation therapy to the neck for pain control. She completed the radiation on MondayOctober 16. It does appear to have helped. Repeat CT scan October 18 revealed: No significant change in multiple bilateral pulmonary nodules. The dominant left upper lobe nodule paramediastinal is stable. The semisolid nodule in the left upper lobe posteriorly is also stable. No abnormal mediastinal adenopathy seen. Lytic lesions involving T5, L1 vertebra and right anterior 4th rib are stable. Repeat biopsy of the L1 vertebra: L2, fine needle aspiration:Positive for malignancy, consistent with metastatic lung carcinoma. Molecular testing for: EGFR, ALK, ROS1 and BRAF came back negative. PD-L1 results: Negative. Back in October, Patient completed radiation therapy to the neck and left hip. She has had some improvement in the pain. December 26, she was started on Carboplatin and Alimta based regimen Q 21 days x 6 cycles. Unfortunately she did not tolerate it too well. She developed significant thrombocytopenia. l decided to switch to Carboplatin and Gemcitabine based chemotherapy. l started out with Gemzar 800 milligram/meter squared. She received cycle 3, on March 12. I elected to omit day 8 Gemzar on account of significant pancytopenia. However Her platelets still did plummet. CT scan of the chest from 05/19: 1. Several small pulmonary nodules have improved. 2. The larger nodules are stable in the left upper lobe. 3. No abnormal mediastinal or axillary adenopathy. The sclerotic T5, T6 and L1 lesions are stable. There is mild pathological compression fracture T5 vertebra with posterior sclerotic bony component, stable. The T6 and L1 sclerotic lesions are new. There was a lytic area seen within the L1 vertebra on the previous study. CT scan does show improvement. She has had such a hard time tolerating the treatment. With low energy level failure to thrive. She had significant bone marrow suppression, requiring transfusion of blood and platelets. At that point she elected to take a break. It is important to focus on her quality of life as well. That is important to her. She is having numbness and leg weakness, below the knees. With her history of bone disease I am concerned about cord compression. MRI of thoracic and lumbar spine: There is widespread osseous metastatic disease involving the thoracic and lumbar spine. There are pathological compression fractures at T5 and L2. No canal compromise within the thoracic or lumbar spine. No cord compression or abnormal intramedullary signal changes. She is clinically stable. Denies new complaints. As long as she is not symptomatic, she is not too keen on doing too many imaging or follow the aggressive route. She had a CT scan of her chest for restaging on 04/09/21: Emphysema. Stable left upper and lingular nodules and small right lower lobe nodules. Sclerotic metastatic disease to the bone with pathologic compression fractures of the T5 and L2 vertebral bodies. This does not appear appreciably changed from previous MRIs September 2020. There is interval increase in sclerotic T6 vertebral body lesion. PLAN: Plan is to continue to monitor her. I offered to proceed with imaging studies however she would rather wait and see. She would agree if she had symptoms. She recieved her Denosumab, today. She will continue to take the Marinol to improve her nutrition. She is trying to be more active. She will return in 3 months for a follow-up visit. Thank you CC: Melchor Winslow. Giana RT. - Time Spent With Patient Time Spent with Patient (in minutes): 30
[2021-09-17 14:11] LABS: MANUAL DIFF FLAG NO
[2021-09-17 14:18] LABS: Basophils Percent Auto 0.3 % (0-2); Eosinophils Percent Auto 1.2 % (0-4); Hematocrit 29.4 % (37.0-47.0); Hemoglobin 9.5 g/dl (12.0-16.0); Imm Gran Abs Auto 0.03 X10*3/uL (0.00-0.03); Imm Gran Pct Auto 0.9 % (0.0-0.4); Lymphocytes Absolute Auto 0.4 X10*3/uL (1.2-4.9); Lymphocytes Percent Auto 11.5 % (20-40); Mean Corpuscular HGB Conc 32.3 g/dl (31.0-35.0); Mean Corpuscular Hemoglobin 33.3 pg (27.0-33.0); Mean Corpuscular Volume 103.2 fL (80.0-98.0); Mean Platelet Volume 8.6 fL (9.4-12.3); Monocytes Absolute Auto 0.4 X10*3/uL (0.1-1.2); Monocytes Percent Auto 10.4 % (2-11); Neutrophils Absolute Auto 2.6 x10*3/uL (2.0-8.3); Neutrophils Percent Auto 75.7 % (45-73); Platelet Count 120 X10*3/uL (160-400); Red Blood Count 2.85 X10*6/uL (4.20-5.50); Red Cell Distribution Width 14.6 % (11.0-16.0); White Blood Count 3.5 X10*3/uL (4.8-10.8)
[2021-09-17 14:38] LABS: Alanine Aminotransferase 8 U/L (0-31); Albumin Level 3.7 g/dL (3.5-5.0); Alkaline Phosphatase 198 U/L (39-117); Anion Gap 13 (12-20); Aspartate Amino Transferase 13 U/L (5-31); Bilirubin Total 0.2 mg/dL (0.0-1.0); Blood Urea Nitrogen 32 mg/dL (9-16); Calcium 9.2 mg/dL (8.4-10.2); Carbon Dioxide 23 mmol/L (22-29); Chloride 107 mmol/L (96-108); Creatinine Clr Calc Pharmacy 19.2; Estimated Glomerular Filt Rate 26; Glucose Random 96 mg/dL (60-115); Potassium 4.8 mmol/L (3.3-5.1); Sodium 138 mmol/L (135-145); Total Protein 6.5 g/dL (6.5-8.0)
[2021-09-17 14:53] VITALS: BP 134/85; PULSE 83; RESP 18; TEMP 36.5; O2SAT 98; BMI 14.8
[2021-09-17 14:59] LABS: Vitamin D 25-OH Total 22.2 ng/mL (>30)
--- NOTE | 2021-09-17 16:51 | MHC.HEMONC ---
Patient present for follow up with Dr Haas and [id number] Denosumab injection. Medication administered in JUSTO, patient tolerated it well. Next injection and follow up scheduled for 12/10/21. Eve Zamora, aware that PA will before next injection.
--- NOTE | 2021-11-24 17:05 | HO.HEMONCPA ---
PA FOR XGEVA FOR CONTINUATION OF THERAPY REQUESTE. AWAITING DECISION
--- NOTE | 2021-11-25 09:19 | HO.HEMONCPA ---
PA FOR XGEVA ([id number]) HAS BEEN APPROVED. [facility]-12/06/21 TO 12/05/22 AUTH#[id number]
[2021-12-10 14:08] LABS: MANUAL DIFF FLAG NO
--- NOTE | 2021-12-10 14:08 | P.PNHO_ITS ---
Medical Summary - Medical Summary Date of Service: 12/10/21 Chief complaint: Follow-up for: Non-small cell lung carcinoma. 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 CURRENT THERAPY: Completed radiation to the neck on October 16. Completed RT to Hip, in August. B12 injection. Received 1st cycle of Carboplatin and Alimta based chemotherapy December 26. Was switched to Carbo/Gemzar. Received cycle 4 of chemo, on March 12, 2020. Cycle 5 on April 16, 2020. Interval History Interval history: This is a pleasant 81 year-old lady, here for a follow-up visit. She has not been doing too well. She denies a significant amount of pain. However her legs have been weak. She is not able to do much walking. She can move her legs but not able to weightbear. She goes from bed to bathroom and then couch, where she stays most of the day. When she goes out she takes the wheelchair. She feels part of it is lack of endurance. She has done that to herself by not moving around too much. Only rarely would she take anything for it, other than Tylenol. She still complains of numbness behind the knees down. She denies pain in her neck. She denies chest pain nor shortness of breath. No fever nor chills. Her energy level is at baseline. Appetite is actually better. Her weight is actually stable. She denies abdominal pain, just occasional self-limited cramping. No nausea vomiting, heartburn nor indigestion. Bowels are working without any gross blood in it. She denies any gross blood in the stools. She is in good spirits. The rest of the review of systems, is unremarkable. Previous complaints: She has had a chronic weakness in her legs. Her balance has been off. Sometimes she has a hard time standing up. There appears to be weakness below her knees. She can manage inside her home, where she holds on to diop but is unable to walk out doors by herself. She does feel numbness, behind her knees. She denies any bladder problems. She is constipated. Review of Systems - Constitutional Reports system reviewed and no additional complaints, except as documented, Reports weakness, Reports weight loss - Eyes Reports system reviewed and no additional complaints, except as documented - ENT Reports system reviewed and no additional complaints, except as documented - Cardiovascular Reports system reviewed and no additional complaints, except as documented - Respiratory Reports no additional respiratory complaints - Gastrointestinal Reports system reviewed and no additional complaints, except as documented - Genitourinary Reports no additional female genitourinary complaints - Musculoskeletal Reports system reviewed and no additional complaints, except as documented - Integumentary/Breasts Skin/Breast: Reports no additional skin complaints - Neurologic Reports system reviewed and no additional complaints, except as documented, Reports abnormal gait, Reports lack of coordination, Reports tingling, Reports weakness Comments: Bilateral lower extremity weakness. - Psychiatric Reports system reviewed and no additional complaints, except as documented - Endocrine Reports no additional endocrine complaints - Hematologic/Lymphatic Reports system reviewed and no additional complaints, except as documented - Allergic/Immunologic Reports system reviewed and no additional complaints, except as documented PMFSH Medical History: Medical History (Last Reviewed 12/10/21 @ 14:14 by Jacklyn Regalado CMA) Cataract HTN (hypertension) Functional capacity: uses cane/walker Patient : No Family History: Family History (Last Updated 12/10/21 @ 14:15 by Jacklyn Regalado CMA) Maternal Aunt Liver cancer Breast cancer Social History: Social History (Last Updated 12/10/21 @ 14:17 by Jacklyn Regalado CMA) Living Situation History: Household Members: Spouse Housing: House Are you a primary patient care associate to a significant other at home: No Do you presently have visiting nurse or other home services: No Alcohol History Details: 1. How often do you have a drink containing alcohol?: a. Never Tobacco History: Patient Tobacco Use Status: Former Tobacco user Cigarette Packs Per Day: 1 Smoke Quit Date: 2000 Substance Use History: Use of substances other than those prescribed or required for medical reasons : No Domestic Abuse History: Have you been hit, kicked, punched, or otherwise hurt by someone within the past year? If so, by whom?: No Do you feel safe in your current relationship?: Yes Advance Directives: Advance Directives: No Advance Directives Information Provided: No Homicidal Assessment: Do you have thoughts of harming others: None Do you have a plan to hurt others: No Plan Do you have the means to hurt others: No Nutrition Assessment: Recently lost weight without trying: Unsure How much weight loss: Unsure Eating poorly because of decreased appetite: Yes Nutrition screen score: 5 Patient : No Occupation Assessmet: service: No Current occupational status: retired Oncology Screenings - ECOG Performance Status ECOG Performance Status: 2 Home Medications and Allergies Current Medications: Current Medications Denosumab (Denosumab 120 Mg/1.7 Ml Vial) 120 mg SUBCUT ONCE STACY Stop: 12/10/21 23:59 Home Medications Medication Instructions Recorded Confirmed Type aspirin 81 mg tablet 81 mg PO DAILY 06/23/20 12/10/21 History Allergies Allergy/AdvReac Type Severity Reaction Status Date / Time lactose [LACTOSE] AdvReac Mild DIARRHEA,BL Verified 12/10/21 14:17 OATING Exam Vital signs: Vital Signs Temp 97.7 F 09/17/21 14:53 Pulse 83 09/17/21 14:53 Resp 18 09/17/21 14:53 BP 134/85 09/17/21 14:53 Pulse Ox 98 09/17/21 14:53 Intake & Output 12/09/21 12/10/21 12/10/21 18:59 06:59 18:59 Other: Weight 43 kg Weight 43 kg BMI result Body Mass Index 14.8 - Constitutional Present: mild distress - Routine HEENT Exam Head: Present: normal inspection Eye: Present: normal appearance ENT: Present: mucous membranes moist - Routine Neck Exam Present: full ROM - Routine Respiratory Exam Present: decreased breath sounds - Routine Cardiovascular Exam Cardiovascular: Present: RRR, S1, S2 - Routine Abdominal Exam Present: soft, nontender - Routine Rectal Exam Patient deferred: digital exam - Routine Extremities Exam Present: nontender - Routine Back/Spine/Pelvis Exam Back/Spine: Present: full ROM - Routine Skin Exam Present: intact - Routine Neurological Exam Present: alert, oriented X3 - Detailed Neurological Exam: Coma Scale Eye Opening: Spontaneous (4) - Routine Psychiatric Exam Present: normal affect Data - Labs CBC & Chem 7: 12/10/21 14:07 12/10/21 14:07 Assessment and Plan Patient Active problem list reviewed?: Yes (1) Non-small cell carcinoma of lung Status: Acute Assessment and plan: This is an unfortunate 79 year-old lady with on set of symptoms of right cervical pain, that started about a year ago. She does have a previous history of smoking. MRI of the C-spine from July 20 revealed: There is an expansile lesion involving the right-sided body of C2 extending to the right lamina and right transverse process. This is most consistent with a neoplastic process, likely an osseous metastasis. A bone scan could be obtained to evaluate for other osseous lesions. There is narrowing of the right neural foramen. There is mild mass effect on the thecal sac, but there is no spinal cord compression or central stenosis. CT scan of the chest from July 25 revealed: Moderate-sized left upper lobe spiculated lesion measuring 2.1 cm. There are multiple additional lung nodules, likely metastatic. Recommend CT/PET exam and if clinically indicated, biopsy. There are no abnormal mediastinal lymph nodes seen yet. Normal adrenal glands. Bone scan from July 25 revealed: Metastatic tumor involvement of bone with prominent abnormalities in the spine, right frontoparietal skull, right fourth rib, and left sacral ala. An additional abnormality in the supra-acetabular left iliac bone may also be metastatic in etiology, but this alternatively may represent an arthritic or degenerative lesion. The tumor markers are as follows: LDH: 272. CEA: 1963.30. CA 125: 294. CA 19-9: 696. PET scan from August 29 revealed: There is extensive metastatic bone disease most prominent in the cervical, thoracic lumbar and the sacral spine. Also visualized is solitary nodule left upper lobe, metabolically active and likely source of primary lesion. Other pulmonary nodules seen on the previous CT chest exam 07/25/2019 are not metabolically active. The correct metastatic spine levels are as S3, L2 and T5 vertebra. Biopsy of L1 vertebrae from September 12 revealed: Bone, L1, biopsy: Metastatic moderately differentiated adenocarcinoma co nsistent with lung primary. Molecular/ancillary testing (EGFR, ALK, ROS, BRAF and PD-L1) testing is underway. Results will be addended. She was referred her for radiation therapy to the neck for pain control. She completed the radiation on MondayOctober 16. It does appear to have helped. Repeat CT scan October 18 revealed: No significant change in multiple bilateral pulmonary nodules. The dominant left upper lobe nodule paramediastinal is stable. The semisolid nodule in the left upper lobe posteriorly is also stable. No abnormal mediastinal adenopathy seen. Lytic lesions involving T5, L1 vertebra and right anterior 4th rib are stable. Repeat biopsy of the L1 vertebra: L2, fine needle aspiration:Positive for malignancy, consistent with metastatic lung carcinoma. Molecular testing for: EGFR, ALK, ROS1 and BRAF came back negative. PD-L1 results: Negative. Back in October, Patient completed radiation therapy to the neck and left hip. She has had some improvement in the pain. December 26, she was started on Carboplatin and Alimta based regimen Q 21 days x 6 cycles. Unfortunately she did not tolerate it too well. She developed significant thrombocytopenia. l decided to switch to Carboplatin and Gemcitabine based chemotherapy. l started out with Gemzar 800 milligram/meter squared. She received cycle 3, on March 12. I elected to omit day 8 Gemzar on account of significant pancytopenia. However Her platelets still did plummet. CT scan of the chest from 05/19: 1. Several small pulmonary nodules have improved. 2. The larger nodules are stable in the left upper lobe. 3. No abnormal mediastinal or axillary adenopathy. The sclerotic T5, T6 and L1 lesions are stable. There is mild pathological compression fracture T5 vertebra with posterior sclerotic bony component, stable. The T6 and L1 sclerotic lesions are new. There was a lytic area seen within the L1 vertebra on the previous study. CT scan does show improvement. She has had such a hard time tolerating the treatment. With low energy level failure to thrive. She had significant bone marrow suppression, requiring transfusion of blood and platelets. At that point she elected to take a break. It is important to focus on her quality of life as well. That is important to her. She is having numbness and leg weakness, below the knees. With her history of bone disease I am concerned about cord compression. MRI of thoracic and lumbar spine: There is widespread osseous metastatic disease involving the thoracic and lumbar spine. There are pathological compression fractures at T5 and L2. No canal compromise within the thoracic or lumbar spine. No cord compression or abnormal intramedullary signal changes. She is clinically stable. Denies new complaints. As long as she is not symptomatic, she is not too keen on doing too many imaging or follow the aggressive route. She had a CT scan of her chest for restaging on 04/09/21: Emphysema. Stable left upper and lingular nodules and small right lower lobe nodules. Sclerotic metastatic disease to the bone with pathologic compression fractures of the T5 and L2 vertebral bodies. This does not appear appreciably changed from previous MRIs September 2020. There is interval increase in sclerotic T6 vertebral body lesion. MRI of the thoracic and lumbar spine from 09/25, revealed: 1. Progressed osseous metastatic disease in the thoracolumbar spine. Severe compression fracture deformity again evident at the T5 level, though worsened on the current examination with further bony retropulsion and ventral epidural soft tissue disease resulting in moderate thecal sac distortion and epsd-aj-[id number] ventral cord flattening without intramedullary signal change. 2. Increased ventral epidural soft tissue disease from the T4 through the T6 levels with [id number] thecal sac distortion at the upper T6 level. 3. Progressed osseous metastatic disease and epidural soft tissue disease as well in the lumbar spine with disease most significant at the L2 level, as noted on prior imaging. No new compression fractures. Epidural soft tissue disease at the L1 and L2 levels contributing to mild ventral thecal sac distortion superimposed upon moderate spondylosis. She has progressive pancytopenia. This could be related to her bone marrow Mets. She has had progressive lower extremity weakness. In the past she has not wanted to have extensive evaluation. I offered to proceed with imaging studies however she said she would rather wait and see. I offered to do a CT scan of the chest and then treatment based upon the results . She has declined chemotherapy however may be able to treat her with nivolumab. She is now willing to have a CT scan of the chest done. PLAN: Will proceed with CT chest. Will review the results with her. Then proceed according to her wishes. Plan is to continue to monitor her. She recieved her Denosumab, today. She will continue to take the Marinol to improve her nutrition. She is trying to be more active. She will return in 2 weeks for a follow-up visit. Thank you CC: Melchor Winslow. Giana HURTADO. - Time Spent With Patient Time Spent with Patient (in minutes): 30
[2021-12-10 14:11] LABS: Basophils Percent Auto 0.2 % (0-2); Eosinophils Percent Auto 0.7 % (0-4); Hematocrit 28.6 % (37.0-47.0); Hemoglobin 8.9 g/dl (12.0-16.0); Imm Gran Abs Auto 0.02 X10*3/uL (0.00-0.03); Imm Gran Pct Auto 0.5 % (0.0-0.4); Lymphocytes Absolute Auto 0.4 X10*3/uL (1.2-4.9); Lymphocytes Percent Auto 9.9 % (20-40); Mean Corpuscular HGB Conc 31.1 g/dl (31.0-35.0); Mean Corpuscular Hemoglobin 34.2 pg (27.0-33.0); Mean Platelet Volume 8.7 fL (9.4-12.3); Monocytes Absolute Auto 0.7 X10*3/uL (0.1-1.2); Monocytes Percent Auto 15.4 % (2-11); Neutrophils Absolute Auto 3.2 x10*3/uL (2.0-8.3); Neutrophils Percent Auto 73.3 % (45-73); Red Cell Distribution Width 14.6 % (11.0-16.0); White Blood Count 4.4 X10*3/uL (4.8-10.8)
[2021-12-10 14:12] VITALS: BP 122/74; PULSE 87; RESP 14; TEMP 36.3; O2SAT 100; BMI 13.3
[2021-12-10 14:12] LABS: Platelet Count 87 X10*3/uL (160-400)
[2021-12-10 14:37] LABS: Alanine Aminotransferase 9 U/L (0-31); Albumin Level 3.4 g/dL (3.5-5.0); Alkaline Phosphatase 124 U/L (39-117); Anion Gap 13 (12-20); Aspartate Amino Transferase 10 U/L (5-31); Bilirubin Total 0.3 mg/dL (0.0-1.0); Blood Urea Nitrogen 32 mg/dL (9-16); Calcium 8.3 mg/dL (8.4-10.2); Carbon Dioxide 21 mmol/L (22-29); Chloride 111 mmol/L (96-108); Estimated Glomerular Filt Rate 26; Glucose Random 72 mg/dL (60-115); Potassium 4.6 mmol/L (3.3-5.1); Sodium 140 mmol/L (135-145); Total Protein 5.8 g/dL (6.5-8.0)
--- NOTE | 2021-12-10 15:20 | MHC.HEMONCMA ---
Pt was in for follow up. Clinical summary reviewed and updated, VSS. Labs were drawn. Pt to return in 1 month.
--- NOTE | 2021-12-10 15:27 | HO.HEMONCSCH ---
CT scan sent to [facility].
--- NOTE | 2021-12-10 15:56 | MHC.HEMONC ---
Calcium 8.[address] Haas. OK to give XGeva. Pt to continue to take calcium supplements at home. Xgeva 120mg given as ordered. Next injection scheduled for 3 months
--- NOTE | 2021-12-24 08:24 | HO.HEMONCPA ---
PA FOR PET CT HAS BEEN APPROVED . AUTH#[id number] DOS-12/23/21 TO 06/21/22
--- NOTE | 2022-01-27 11:58 | HE.ONCSEC ---
FAXED ALL 3 CERTIFICATE BACK TO THE HOME FOR PT . ( SCANNED IN DOCUMENTS )
--- NOTE | 2022-03-03 10:42 | HE.ONCSEC ---
CALLED PATIENT FOR ROUTINE REMINDER CALL TO REMIND PATIENT OF APPT . PATIENT DID NOT ANSWER , I LEFT A DETAILED VOICEMAIL TO PATIENT INFORMING PT OF HER APPT DATE & TIME .
== END 2022-01-27 13:55 | disposition home or self-care (01) ==
LOC: HO.ONC 14:20
PROVIDERS: PCP Internal Medicine; Visit Provider Internal Medicine Medical Oncology
DX: C34.91 Malignant neoplasm of unspecified part of right bronchus or lung (principal); C79.51 Secondary malignant neoplasm of bone; D61.818 Other pancytopenia; Z92.3 Personal history of irradiation; Z87.891 Personal history of nicotine dependence
CPT/HCPCS: 36415; 80053; 82306; 85025; 96360; 96361; 96372; 99214; J0897

== ENCOUNTER 2021-12-24 14:31 | Outpatient (REF) | payer MEDICARE, SELFPAY ==
--- NOTE | ~2021-12-24 | CT_ITS ---
EXAMINATION: CT CHEST WITHOUT CONTRAST CLINICAL INFORMATION: Follow-up non-small cell lung cancer. COMPARISON: None TECHNIQUE: Multidetector volumetric CT imaging of the chest was done. Axial MIP volume rendering provided. Sagittal and coronal reformatted images were obtained. This CT examination was performed using dose optimization techniques as appropriate, variously including the following: *Automated exposure control *Adjustment of mA and/or kV according to patient size (this includes techniques or standardized protocols for targeted exams where dose is matched to indication/reason for exam; i.e. extremities or head) *Use of iterative reconstruction technique DLP: 78 mGy-cm FINDINGS: MANAGING PRINCIPAL: Hyperinflated lungs are clear. LUNGS: There is a left apical pleural-based nodule measuring 1.5 cm in axial image 100/7, previously measured 1.3 cm. A 1.7 cm irregular nodule left upper lobe medially measures 1.7 cm on axial image 122/7. There are several 2 mm nodules in the right lower lobe on axial image 324/7, 313/7, 301/7 which appear new. There is a peripheral-based 6 mm nodule right lower lobe axial image 368/7, stable. There are multiple clusters of lung nodules in the lingula which are likely intrabronchial, slightly increased in number. In addition to a larger nodule slightly inferiorly measuring 2.2 cm image 471/7 and 1.4 cm on axial image 481/7, these nodules appear slightly larger especially the medial nodule. There is a 6 mm nodule right middle lobe axial image 44/4 and appears stable. There is patchy compressive atelectasis right lung base. MEDIASTINUM: The thyroid lobes are symmetric and normal. The heart size and the great vessels are normal caliber. The ascending aorta measures 4 cm. There are coronary artery calcifications present. No pericardial effusion seen. No abnormal size mediastinal or hilar lymph nodes seen. PLEURA: There is no pleural effusion. No pleural mass or thickening. AXILLA: There are no abnormal axillary lymph nodes seen. The chest wall is unremarkable. UPPER ABDOMEN: Visualized liver, spleen, pancreas and bilateral adrenal glands unremarkable. OSSEOUS STRUCTURES: There are multiple sclerotic bone lesions in the thoracic and lumbar spine and right 4th rib. The 4th rib lesion appears slightly larger in width. There appears to be no change in the sclerotic pathological compression fracture T5 vertebra. CT/CT chest wo con IMPRESSION: Multiple bilateral upper nodules. There are several new nodules in the right lower lobe. Medial lingular-based nodule is also increase in size. The sclerotic lesion in the right 4th rib has also increased in size. Fleischner guidelines were followed.
== END 2021-12-24 14:32 | disposition home or self-care (01) ==
LOC: HO.CT 14:31
PROVIDERS: Visit Provider Internal Medicine Medical Oncology
DX: C34.91 Malignant neoplasm of unspecified part of right bronchus or lung (principal)
CPT/HCPCS: 71250